=== PATIENT | female | born 1955 | race Caucasian/White ===

== ENCOUNTER 2020-07-22 20:45 | Observation (INO) | payer MEDICARE, MEDICAID, OTHER ==
[2020-07-22] MEDS ORDERED: Ondansetron 4 MG/2 ML SDV IVPUSH ONE (21:04)
[2020-07-22] MEDS ORDERED: Sodium Chloride 0.9% 2.5 ML Syringe FLUSH PRN (21:04)
[2020-07-22] MEDS ORDERED: Sodium Chloride 0.9% 1,000 ML IV ONE (21:04)
[2020-07-22] MEDS ORDERED: HYDROmorphone 1 MG/ML Syringe IVPUSH ONE ×2 (21:04→22:49)
[2020-07-22] MEDS ORDERED: Sodium Chloride 0.9% 10 ML Syringe FLUSH PRN (21:04)
--- NOTE | 2020-07-22 21:11 | EDM.PDOC ---
ED HPI GENERAL MEDICAL PROBLEM - General Chief Complaint: Abdominal Pain Stated Complaint: CONSTIPATION, ABDOMINAL PAIN Time Seen by Provider: 07/22/20 20:50 Source of Information: Reports: Patient - History of Present Illness INITIAL COMMENTS - FREE TEXT/NARRATIVE: HISTORY AND PHYSICAL: History of present illness: This is a 64-year-old female with a history significant for hypertension who presents ER today complaining of diffuse abdominal discomfort greatest in the lower abdomen with a sensation of constipation since Thursday. Patient denies any history of diabetes, liver, lung, kidney problems. Patient denies any tobacco, alcohol, drugs. Patient has no known drug allergies. Patient reports only abdominal surgery is a bilateral tubal ligation many years ago. Patient admits to fever of 100.9 earlier today. Patient denies any vomiting. Patient reports that she has been passing flatus and did have a small bowel movement today after going to the store and buying prunes. Patient denies any dysuria, frequency, urgency, hematuria. Patient reports in her bowel movement today that was a small amount of blood but she reports this is not unusual for her and that she has been diagnosed with hemorrhoids in the past and she feels like her hemorrhoids are flared with her constipation currently. She denies any chest pain, shortness of breath, URI symptoms, sore throat, coronavirus exposures. Patient denies any history of diverticulitis/diverticulosis. Review of systems: As per history of present illness and below otherwise all systems reviewed and negative. Past medical history: As per history of present illness and as reviewed below otherwise noncontributory. Surgical history: As per history of present illness and as reviewed below otherwise noncontributory. Social history: No reported history of drug or alcohol abuse. Family history: As per history of present illness and as reviewed below otherwise noncontributory. Physical exam: Constitutional: Patient is oriented to person, place, and time. Appears well- developed and well-nourished. No distress. HEENT: Moist mucous membranes Head: Normocephalic and atraumatic Eyes: Right eye exhibits no discharge. Left eye exhibits no discharge. No scleral icterus Neck: Normal range of motion. No tracheal deviation present. Cardiovascular: Normal rate and regular rhythm. Pulmonary: Effort normal, no respiratory distress. Abd: Soft, nondistended, no rebound/guarding, no psoas or obturator signs, no tenderness at Mcberney's point, no Harley's sign. Pt does not present with an exam that would be consistent with an acute surgical abdomen at this time, diffuse tenderness to palpation with greatest area of tenderness to palpation lower abdomen bilaterally. Musculoskeletal: Normal range of motion Neurologic: Alert and oriented to person, place and time. Skin: [place], warm and dry. Psychiatric: Normal mood and affect. Behavior is normal. Judgment and thought content normal. Nursing note and vital signs have been reviewed Diagnostics: CBC, CMP, lipase, CT scan of abdomen pelvis with IV contrast, urinalysis Therapeutics: Zofran 4 mg IV, Dilaudid 0.5 mg IV, NSS x1 L Dilaudid 1 mg IV Flagyl 500 mg IV Levaquin 750 mg IV Assessment and plan: Patient CT scan is consistent with diverticulitis with small perforation identified on the CT scan. Patient has been given Dilaudid 1 mg IV for continued pain. Patient was started on IV Levaquin and IV Flagyl to assist her with her diverticulitis. Assessment and plan 1. Acute diverticulitis of the sigmoid colon with adjacent extraluminal air is consistent with perforation. No pelvic abscess identified. 2. Heterogeneous exophytic mass arising from the lower pole of the right kidney containing nodular enhancement and scattered fat density foci. Primary differential consideration is for renal angiomyolipoma, however renal cell carcinoma is also a possibility. Urological consultation is recommended. Patient will be admitted, will consult with Dr. Lafleur for admission. Definitive disposition and diagnosis as appropriate pending reevaluation and review of above. Abdomen Pain Score (Numeric/FACES): 8 - Related Data Allergies Allergy/AdvReac Type Severity Reaction Status Date / Time Latex, Natural Rubber Allergy Swelling Verified 07/23/20 01:56 Home Meds: Home Meds Losartan Potassium 25 mg PO DAILY 07/22/20 [History] Acetaminophen/oxyCODONE [Percocet 325-5 MG] 1 tab PO Q6HR PRN 4 Days #16 tablet 07/24/20 [Rx] Ciprofloxacin [Ciprofloxacin HCl] 500 mg PO BID 12 Days #24 tablet 07/24/20 [Rx] metroNIDAZOLE 500 mg PO Q8H 12 Days #36 tablet 07/24/20 [Rx] Past Medical History HEENT History: Reports: None Cardiovascular History: Reports: Hypertension Respiratory History: Reports: None Gastrointestinal History: Reports: None Genitourinary History: Reports: None CONVEYOR FEEDER History: Reports: Musculoskeletal History: Reports: None Neurological History: Reports: None Psychiatric History: Reports: None Endocrine/Metabolic History: Reports: None Hematologic History: Reports: None Immunologic History: Reports: None Oncologic (Cancer) History: Reports: None Dermatologic History: Reports: None - Infectious Disease History Infectious Disease History: Reports: None - Past Surgical History Head Surgeries/Procedures: Reports: None Female Surgical History: Reports: Hysterectomy, Tubal Ligation Musculoskeletal Surgical History: Reports: Shoulder Surgery Social & Family History - Family History Family Medical History: Noncontributory - Tobacco Use Smoking Status *Q: Former Smoker Used Tobacco, but Quit: No - Caffeine Use Caffeine Use: Reports: Coffee - Recreational Drug Use Recreational Drug Use: No ED ROS GENERAL - Review of Systems Review Of Systems: Comprehensive ROS is negative, except as noted in HPI. ED EXAM, GENERAL - Physical Exam Exam: See Below Course - Vital Signs Last Recorded V/S: Last Vital Signs Temp 97.1 F 07/24/20 16:00 Pulse 67 07/24/20 16:00 Resp 20 07/24/20 16:00 BP 148/73 H 07/24/20 16:00 Pulse Ox 98 07/24/20 16:00 - Orders/Labs/Meds Labs: Laboratory Tests 07/22/20 07/22/20 07/22/20 Range/Units 21:00 21:00 21:10 WBC 13.51 H (4.0-11.0) K/uL RBC 4.77 (4.30-5.90) M/uL Hgb 14.9 (12.0-16.0) g/dL Hct 44.1 (36.0-46.0) % MCV 92.5 (80.0-98.0) fL MCH 31.2 (27.0-32.0) pg MCHC 33.8 (31.0-37.0) g/dL RDW Std Deviation 43.8 (28.0-62.0) fl RDW Coeff of Tushar 13 (11.0-15.0) % Plt Count 239 (150-400) K/uL MPV 9.20 (7.40-12.00) fL Neut % (Auto) 86.7 H (48.0-80.0) % Lymph % (Auto) 5.8 L (16.0-40.0) % Amador % (Auto) 7.1 (0.0-15.0) % Eos % (Auto) 0.3 (0.0-7.0) % Baso % (Auto) 0.1 (0.0-1.5) % Neut # (Auto) 11.7 H (1.4-5.7) K/uL Lymph # (Auto) 0.8 (0.6-2.4) K/uL Amador # (Auto) 1.0 H (0.0-0.8) K/uL Eos # (Auto) 0.0 (0.0-0.7) K/uL Baso # (Auto) 0.0 (0.0-0.1) K/uL Nucleated RBC % 0.0 /100WBC Nucleated RBCs # 0 K/uL Sodium 133 L (136-145) mmol/L Potassium 4.1 (3.5-5.1) mmol/L Chloride 99 (98-107) mmol/L Carbon Dioxide 20.9 L (21.0-32.0) mmol/L BUN 9 (7.0-18.0) mg/dL Creatinine 1.1 H (0.6-1.0) mg/dL Est Cr Clr Drug Dosing 47.10 mL/min Estimated GFR (MDRD) 49.7 ml/min Glucose 138 H (74-106) mg/dL Calcium 9.7 (8.5-10.1) mg/dL Total Bilirubin 0.7 (0.2-1.0) mg/dL AST 118 H (15-37) IU/L ALT 191 H (14-63) IU/L Alkaline Phosphatase 273 H (46-116) U/L Total Protein 7.9 (6.4-8.2) g/dL Albumin 3.7 (3.4-5.0) g/dL Globulin 4.2 H (2.6-4.0) g/dL Albumin/Globulin Ratio 0.9 (0.9-1.6) Lipase 109 (73-393) U/L Urine Color YELLOW Urine Appearance CLEAR Urine pH 5.0 (5.0-8.0) Ur Specific [place] 1.020 (1.001-1.035) Urine Protein NEGATIVE (NEGATIVE) mg/dL Urine Glucose (UA) NEGATIVE (NEGATIVE) mg/dL Urine Ketones >=80 (NEGATIVE) mg/dL Urine Occult Blood NEGATIVE (NEGATIVE) Urine Nitrite NEGATIVE (NEGATIVE) Urine Bilirubin NEGATIVE (NEGATIVE) Urine Urobilinogen 1.0 (<2.0) EU/dL Ur Leukocyte Esterase NEGATIVE (NEGATIVE) SARS Virus RNA (PCR) (NEGATIVE) 07/22/20 Range/Units 23:45 WBC (4.0-11.0) K/uL RBC (4.30-5.90) M/uL Hgb (12.0-16.0) g/dL Hct (36.0-46.0) % MCV (80.0-98.0) fL MCH (27.0-32.0) pg MCHC (31.0-37.0) g/dL RDW Std Deviation (28.0-62.0) fl RDW Coeff of Tushar (11.0-15.0) % Plt Count (150-400) K/uL MPV (7.40-12.00) fL Neut % (Auto) (48.0-80.0) % Lymph % (Auto) (16.0-40.0) % Amador % (Auto) (0.0-15.0) % Eos % (Auto) (0.0-7.0) % Baso % (Auto) (0.0-1.5) % Neut # (Auto) (1.4-5.7) K/uL Lymph # (Auto) (0.6-2.4) K/uL Amador # (Auto) (0.0-0.8) K/uL Eos # (Auto) (0.0-0.7) K/uL Baso # (Auto) (0.0-0.1) K/uL Nucleated RBC % /100WBC Nucleated RBCs # K/uL Sodium (136-145) mmol/L Potassium (3.5-5.1) mmol/L Chloride (98-107) mmol/L Carbon Dioxide (21.0-32.0) mmol/L BUN (7.0-18.0) mg/dL Creatinine (0.6-1.0) mg/dL Est Cr Clr Drug Dosing mL/min Estimated GFR (MDRD) ml/min Glucose (74-106) mg/dL Calcium (8.5-10.1) mg/dL Total Bilirubin (0.2-1.0) mg/dL AST (15-37) IU/L ALT (14-63) IU/L Alkaline Phosphatase (46-116) U/L Total Protein (6.4-8.2) g/dL Albumin (3.4-5.0) g/dL Globulin (2.6-4.0) g/dL Albumin/Globulin Ratio (0.9-1.6) Lipase (73-393) U/L Urine Color Urine Appearance Urine pH (5.0-8.0) Ur Specific [place] (1.001-1.035) Urine Protein (NEGATIVE) mg/dL Urine Glucose (UA) (NEGATIVE) mg/dL Urine Ketones (NEGATIVE) mg/dL Urine Occult Blood (NEGATIVE) Urine Nitrite (NEGATIVE) Urine Bilirubin (NEGATIVE) Urine Urobilinogen (<2.0) EU/dL Ur Leukocyte Esterase (NEGATIVE) SARS Virus RNA (PCR) NEGATIVE (NEGATIVE) Meds: Medications Discontinued Medications Generic Name Dose Route Start Last Admin Trade Name [facility] PRN Reason Stop Dose Admin Ciprofloxacin 500 mg 07/24/20 15:15 07/24/20 16:19 Ciprofloxacin Hcl PO 500 mg BID HERNESTO Administration Dextrose/Water 25 ml 07/24/20 00:25 07/24/20 00:50 Dextrose 50% In Water IVPUSH 07/24/20 00:26 25 ml ONETIME ONE Administration Diphenhydramine HCl 25 mg 07/23/20 17:54 07/23/20 21:17 Benadryl PO 25 mg BEDTIME PRN Administration Sleep Hydromorphone HCl 0.5 mg 07/22/20 21:04 07/22/20 21:23 Dilaudid IVPUSH 07/22/20 21:05 0.5 mg ONETIME ONE Administration Hydromorphone HCl 1 mg 07/22/20 22:49 07/22/20 23:06 Dilaudid IVPUSH 07/22/20 22:50 1 mg ONETIME ONE Administration Hydromorphone HCl 0.5 mg 07/23/20 09:27 07/24/20 07:18 Dilaudid IVPUSH 0.5 mg Q4H PRN Administration Pain Sodium Chloride 1,000 mls @ 999 mls/hr 07/22/20 21:04 07/22/20 21:19 Normal Saline IV 07/22/20 22:04 999 mls/hr .Bolus ONE Administration Levofloxacin/Dextrose 750 mg/ 150 mls @ 100 mls/hr 07/22/20 23:15 07/23/20 00:52 Premix IV 07/23/20 00:44 100 mls/hr ONETIME ONE Administration Metronidazole 500 mg/ Premix 100 mls @ 100 mls/hr 07/22/20 23:15 07/22/20 23:31 IV 07/23/20 00:14 100 mls/hr ONETIME ONE Administration Metronidazole 500 mg/ Premix 100 mls @ 100 mls/hr 07/22/20 23:29 07/22/20 23:31 IV 07/23/20 00:28 Not Given ONETIME ONE Lactated Ringer's 1,000 mls @ 125 mls/hr 07/23/20 00:30 07/23/20 22:28 Ringers, Lactated IV 125 mls/hr ASDIRECTED HERNESTO Administration Pantoprazole Sodium 40 mg/ 10 mls @ 300 mls/hr 07/23/20 09:00 07/24/20 10:22 Sodium Chloride IV 300 mls/hr DAILY HERNESTO Administration Piperacillin Sod/Tazobactam 50 mls @ 100 mls/hr 07/23/20 03:00 07/24/20 10:21 Sod 3.375 gm/ Sodium Chloride IV 100 mls/hr Q6H HERNESTO Administration Magnesium Sulfate 2 gm/ Premix 50 mls @ 50 mls/hr 07/23/20 19:04 07/23/20 19:40 IV 07/23/20 20:03 50 mls/hr ONETIME ONE Administration Dextrose/Lactated Ringer's 1,000 mls @ 125 mls/hr 07/24/20 00:30 07/24/20 00:55 Dextrose 5%-Lactated Ringers IV 125 mls/hr ASDIRECTED HERNESTO Administration Iopamidol 75 ml 07/22/20 22:13 07/22/20 22:15 Isovue-370 (76%) IVPUSH 07/22/20 22:14 75 ml ONETIME STA Administration Losartan Potassium 25 mg 07/23/20 14:00 07/24/20 10:22 Cozaar PO 25 mg DAILY HERNESTO Administration Metronidazole 500 mg 07/24/20 15:15 07/24/20 16:19 Metronidazole PO 500 mg Q8H HERNESTO Administration Morphine Sulfate 2 mg 07/23/20 00:26 07/23/20 01:42 Morphine IVPUSH 2 mg Q4H PRN Administration Pain Ondansetron HCl 4 mg 07/22/20 21:04 07/22/20 21:21 Zofran IVPUSH 07/22/20 21:05 4 mg ONETIME ONE Administration Ondansetron HCl 4 mg 07/23/20 00:26 07/23/20 08:51 Zofran IVPUSH 4 mg Q4H PRN Administration Nausea/Vomiting Oxycodone/Acetaminophen 1 tab 07/24/20 15:14 Percocet 325-5 Mg PO Q4H PRN Pain Sodium Chloride 10 ml 07/22/20 21:04 07/22/20 21:26 Saline Flush FLUSH 10 ml ASDIRECTED PRN Administration Keep Vein Open Sodium Chloride 2.5 ml 07/22/20 21:04 07/22/20 21:26 Saline Flush FLUSH 2.5 ml ASDIRECTED PRN Administration Keep Vein Open Departure - Departure Time of Disposition: 22:44 Disposition: Refer to Observation Condition: Good Clinical Impression: Diverticulitis - Discharge Information Sepsis Event Note (ED) - Evaluation Sepsis Screening Result: No Definite Risk
[2020-07-22 21:25] LABS: CARBON DIOXIDE,CO2 20.9 mmol/L (21.0-32.0); POTASSIUM,K 4.1 mmol/L (3.5-5.1)
[2020-07-22] MEDS ORDERED: Iopamidol 755 Mg/ML 100 ML Bottle IVPUSH STA (22:13)
[2020-07-22] MEDS ORDERED: Levofloxacin/Dextrose 5%-Water 750 MG in Premix Bag 1 BAG IV ONE (23:15)
[2020-07-22] MEDS ORDERED: metroNIDAZOLE/Normal Saline 500 MG in Premix Bag 1 BAG IV ONE ×2 (23:15→23:29)
--- NOTE | 2020-07-22 23:18 | CT ---
Indication: Lower abdominal pain Technique: Contrast enhanced axial CT imaging through the abdomen and pelvis. 75 mL Isovue 370 contrast agent was administered intravenously. Sagittal and coronal reconstructions are provided. Comparison: None Findings: There is no significant abnormality of the liver, gallbladder, spleen, pancreas, and adrenal glands. The portal vein, hepatic veins, and IVC are patent. There is normal caliber of the abdominal aorta. There is no abdominal lymphadenopathy. There is in irregular mass adjacent to the lower pole the right kidney, likely arising exophytically from the kidney. The mass measures 6.1 x 3.8 cm in the axial plane and 7.0 cm craniocaudally. Multiple small hypoattenuating foci within the right consistent with fat. Irregular nodular enhancement is also demonstrated throughout the mass. Prominent vessels are noted along the anterior margin of the mass. There is also a small exophytic right renal cortical cyst. A small parapelvic renal cyst is noted on the left. The left kidney is otherwise unremarkable. There is diverticulosis of the sigmoid colon with associated wall thickening and adjacent inflammatory stranding, consistent with diverticulitis. A focus of extraluminal air is noted along the superior margin of the inflamed segment, consistent with perforation. There is no pericolonic fluid collection to indicate abscess formation. There is no free intraperitoneal air. Remainder of the colon is unremarkable. The appendix is noninflamed. No abnormality is demonstrated in the stomach and small bowel. There are mild degenerative changes of the lower lumbar spine. The included lung bases are clear. Impression: 1. Acute diverticulitis of the sigmoid colon. Adjacent extraluminal air is consistent with perforation. No pelvic abscess. 2. Heterogeneous exophytic mass arising from the lower pole of the right kidney containing nodular enhancement and scattered fat density foci. Primary differential consideration is for renal angiomyolipoma. However, renal cell carcinoma is also a possibility. Urologic consultation is recommended. 3. Findings called to Dr. Leigh at 11:15 p.m. Please note that all CT scans at this facility use dose modulation, iterative reconstruction, and/or weight-based dosing when appropriate to reduce radiation dose to as low as reasonably achievable. Dictated by Venu Prabhakar MD @ Jul 22 2020 11:03PM Signed by Dr. Venu Prabhakar @ Jul 22 2020 11:17PM
[2020-07-23] MEDS ORDERED: Morphine 2 MG/ML SYRINGE IVPUSH PRN (00:26)
--- NOTE | 2020-07-23 00:46 | PCM.SN.2 ---
- Free Text/Narrative Note: pt seen, chart reviewed; diverticulitis with microperforation, no intraperitoneal free air; proceed w iv abx, conservative managment; pt has been seeing senior sas programmer re palpitation, would consult Dr. Justice when office open; long discussion w pt w treatment plan, npo, iv abx, and at least 3 wks abx, fu w colonoscopy 2 mos from; if not responding, would need Muñoz procedure; pt may consider transfer if the need for surgey arise, pt has not made decision re transfer, if the need arise. will follow pt w you; [id number]
[2020-07-23] MEDS: Ondansetron 4 MG/2 ML SDV IVPUSH PRN ×2 (01:40→08:51)
[2020-07-23] MEDS: Lactated Ringers 1,000 ML IV SCH ×3 (02:16→22:28)
[2020-07-23] MEDS: Piperacillin/Tazobactam 3.375 GM in Sodium Chloride 0.9% 50 ML IV SCH ×4 (02:55→21:20)
[2020-07-23 06:32] LABS: BLOOD UREA NITROGEN,BUN 7 mg/dL (7.0-18.0); CARBON DIOXIDE,CO2 22.8 mmol/L (21.0-32.0); CHLORIDE,CL 102 mmol/L (98-107); GLUCOSE RANDOM 118 mg/dL (74-106); POTASSIUM,K 3.9 mmol/L (3.5-5.1); SODIUM,NA 136 mmol/L (136-145)
[2020-07-23] MEDS: Pantoprazole 40 MG in Sodium Chloride 0.9% 10 ML IV SCH (08:51)
[2020-07-23] MEDS: HYDROmorphone 2 MG/ML Syringe IVPUSH PRN ×2 (09:54→14:39)
--- NOTE | 2020-07-23 11:07 | CONS ---
DATE OF CONSULTATION: 07/23/2020 DATE OF : 1955 PRIMARY CARE PHYSICIAN: Maira Escobedo REFERRING PHYSICIAN: Dr. Moody Leigh REASON FOR CONSULTATION: Diverticulitis. HISTORY OF PRESENT ILLNESS: The patient is a 64-year-old lady, who complained over 2-1/2 day history of gradual onset of severe left lower quadrant pain and also increased constipation. The patient remarked the pain has increased tremendously today, and when the emergency room did a CAT scan, the CAT scan showed sigmoid diverticulitis with some extraluminal air, suggesting possible perforation. There is no intraperitoneal free air, which is consistent with microperforation. Surgery was then consulted. The patient denied prior past episode. PAST MEDICAL HISTORY: Denies diabetic, stroke, or [place]. The patient has hypertension. The patient is also seeing Dr. Ferris for frequent palpitations. PAST SURGICAL HISTORY: Bladder repair, normal vaginal delivery x2. ALLERGIES: Please refer to nursing for details. MEDICATION: Please refer to nursing for details. FAMILY HISTORY: No family history of colon cancer. SOCIAL HISTORY: The patient is sometimes smoking, and a glass of wine everyday. PHYSICAL EXAMINATION: GENERAL: A very pleasant lady, smiling to the doctor, very polite, resting comfortably on stretcher in the emergency room. HEENT: Normocephalic and atraumatic. Sclerae are anicteric. LUNGS: Clear to auscultation. HEART: Regular rate and rhythm. ABDOMEN: Soft and nondistended. Not pulsating tender midline abdominal structure. Exquisite tenderness on the left lower quadrant and suprapubic area. On examination is not tender. LABORATORY DATA AND IMAGING: Upon consultation white count is 13, H and H 15 and 44, and platelet is 239. Sodium 133, potassium 4.1, BUN is 9, creatinine is 1.1, glucose is 138, total bilirubin is 0.7, AST and ALT mildly elevated to 120 and 190, and alkaline phosphatase is 273. Lipase is normal at 109. UA: No signs or symptoms of infection. CAT scan report: 1. Acute diverticulitis consistent with perforation. No pelvic abscess. No intraperitoneal free air. 2. Also has some kidney exophytic mass, and recommend Urology consultation. IMPRESSION: Microperforated diverticulitis. Been going on since the last 2 days with elevated white count, and pain is manageable with pain medication. Microperforation. No abscess. Should be responding to conservative management, with IV Levaquin and IV Flagyl. N.p.o. Long discussion with the patient regarding management. If the patient responds to conservative management, dodge surgery, the patient should have followup colonoscopy at least 2 months from now or after pain has completely resolved. The patient should have at least 3 weeks of antibiotic IV plus p.o., and have a followup colonoscopy. In the case the patient does not respond to IV antibiotic, the patient will need emergency surgery, and the patient will get Rajwinder procedure with colostomy, and have been discussed with the patient. With the patient's palpitation situation not clear even after reading to Dr. Ferris, the pound keeper, note, we will recheck with Dr. Ferris when office opens on Thursday. The patient is also not quite clear whether she would have emergency surgery over here. So if the need arise, we may have to talk the patient and see what is her desire. For the time being, continue IV antibiotic, n.p.o., serial abdominal exam, and follow with blood work. I will follow the patient with you. As always, thank you for the kind referral. LIZZETH MARLOW /[id number]
--- NOTE | 2020-07-23 11:59 | PCM.HP.2 ---
<Bunny Becker - Last Filed: 07/23/20 12:34> H&P History of Present Illness - General Date of Service: 07/23/20 Admit Problem/Dx: Admission Diagnosis/Problem Admission Diagnosis/Problem Diverticulitis Source of Information: Patient History Limitations: Reports: No Limitations - History of Present Illness Initial Comments - Free Text/Narative: 64-year-old female admitted for diverticulitis. Patient has no GI PMH and states only hypertension. Patient states social alcohol usage but no illicit drug use. Patient does take Tylenol regularly. Patient states that her abdominal pain began thursday and got increasingly worse thought the weekend. Thursday afternoon it become very uncomfortable at which time patient presented to the ED. She states that she has never had abdominal pain like this before and thought that her pain was cause by constipation. CT Abdo was obtained which showed diverticulitis of the sigmoid colon. Patient was seen by surgery who recommended non-surgical interventions (IV fluids, NPO, IV antibiotics, pain control). Patient does have elevated transaminases (AST 118, ALT 191) and elevated alk phos (273). US Liver/Gallbladder ordered and results pending. Abdomen Pain Score (Numeric/FACES): 4 - Related Data Allergies/Adverse Reactions: Allergies Allergy/AdvReac Type Severity Reaction Status Date / Time Latex, Natural Rubber Allergy Swelling Verified 07/23/20 01:56 Home Medications: Home Meds Losartan Potassium 25 mg PO DAILY 07/22/20 [History] Acetaminophen/oxyCODONE [Percocet 325-5 MG] 1 tab PO Q6HR PRN 4 Days #16 tablet 07/24/20 [Rx] Ciprofloxacin [Ciprofloxacin HCl] 500 mg PO BID 12 Days #24 tablet 07/24/20 [Rx] metroNIDAZOLE 500 mg PO Q8H 12 Days #36 tablet 07/24/20 [Rx] Past Medical History HEENT History: Reports: None Cardiovascular History: Reports: Hypertension Respiratory History: Reports: None Gastrointestinal History: Reports: None Genitourinary History: Reports: None 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: Musculoskeletal History: Reports: None Neurological History: Reports: None Psychiatric History: Reports: None Endocrine/Metabolic History: Reports: None Hematologic History: Reports: None Immunologic History: Reports: None Oncologic (Cancer) History: Reports: None Dermatologic History: Reports: None - Infectious Disease History Infectious Disease History: Reports: None - Past Surgical History Head Surgeries/Procedures: Reports: None Female Surgical History: Reports: Hysterectomy, Tubal Ligation Musculoskeletal Surgical History: Reports: Shoulder Surgery Social & Family History - Family History Family Medical History: Noncontributory - Tobacco Use Smoking Status *Q: Former Smoker Used Tobacco, but Quit: Yes Month/Year Tobacco Last Used: 1994 - Caffeine Use Caffeine Use: Reports: Coffee - Recreational Drug Use Recreational Drug Use: No H&P Review of Systems - Review of Systems: Review Of Systems: See Below General: Reports: Fever. Denies: Chills, Weakness, Night Sweats, Weight Loss HEENT: Reports: Headaches. Denies: Visual Changes Pulmonary: Denies: Shortness of Breath, Wheezing, Cough Cardiovascular: Denies: Chest Pain, Palpitations, Dyspnea on Exertion Gastrointestinal: Reports: Abdominal Pain, Constipation. Denies: Bloody Stool, Diarrhea, Difficulty Swallowing, Distension Genitourinary: Reports: Dysuria Musculoskeletal: Reports: Back Pain Psychiatric: Denies: Confusion, Depression Neurological: Denies: Dizziness, Headache, Numbness, Trouble Speaking, Difficulty Walking Exam - Exam Exam: See Below - Vital Signs Vital Signs: Last Vital Signs Temp 98.1 F 07/23/20 11:55 Pulse 61 07/23/20 11:55 Resp 17 07/23/20 11:55 BP 118/66 07/23/20 11:55 Pulse Ox 97 07/23/20 11:55 Weight: 87.135 kg - Exam Quality Assessment: Central Line/PICC General: Alert, Oriented HEENT: EOMI Neck: Trachea Midline Lungs: Clear to Auscultation, Normal Respiratory Effort. No: Crackles, Wheezing Cardiovascular: Regular Rate, Regular Rhythm, Normal S1 GI/Abdominal Exam: Normal Bowel Sounds, Soft, Rebound, Tender. No: Guarding Extremities: Normal Inspection, Non-Tender, No Pedal Edema Skin: Warm, Dry Neurological: Normal Speech Neuro Extensive - Mental Status: Alert, Oriented x3, Normal Mood/Affect - Patient Data Lab Results Last 24 hrs: Laboratory Results - last 24 hr 07/22/20 07/22/20 07/22/20 Range/Units 21:00 21:00 21:10 WBC 13.51 H (4.0-11.0) K/uL RBC 4.77 (4.30-5.90) M/uL Hgb 14.9 (12.0-16.0) g/dL Hct 44.1 (36.0-46.0) % MCV 92.5 (80.0-98.0) fL MCH 31.2 (27.0-32.0) pg MCHC 33.8 (31.0-37.0) g/dL RDW Std Deviation 43.8 (28.0-62.0) fl RDW Coeff of Tushar 13 (11.0-15.0) % Plt Count 239 (150-400) K/uL MPV 9.20 (7.40-12.00) fL Neut % (Auto) 86.7 H (48.0-80.0) % Lymph % (Auto) 5.8 L (16.0-40.0) % [place] % (Auto) 7.1 (0.0-15.0) % Eos % (Auto) 0.3 (0.0-7.0) % Baso % (Auto) 0.1 (0.0-1.5) % Neut # (Auto) 11.7 H (1.4-5.7) K/uL Lymph # (Auto) 0.8 (0.6-2.4) K/uL [place] # (Auto) 1.0 H (0.0-0.8) K/uL Eos # (Auto) 0.0 (0.0-0.7) K/uL Baso # (Auto) 0.0 (0.0-0.1) K/uL Nucleated RBC % 0.0 /100WBC Nucleated RBCs # 0 K/uL Sodium 133 L (136-145) mmol/L Potassium 4.1 (3.5-5.1) mmol/L Chloride 99 (98-107) mmol/L Carbon Dioxide 20.9 L (21.0-32.0) mmol/L BUN 9 (7.0-18.0) mg/dL Creatinine 1.1 H (0.6-1.0) mg/dL Est Cr Clr Drug Dosing 47.10 mL/min Estimated GFR (MDRD) 49.7 ml/min Glucose 138 H (74-106) mg/dL POC Glucose (60-110) mg/dL Calcium 9.7 (8.5-10.1) mg/dL Phosphorus (2.6-4.7) mg/dL Magnesium (1.8-2.4) mg/dL Total Bilirubin 0.7 (0.2-1.0) mg/dL AST 118 H (15-37) IU/L ALT 191 H (14-63) IU/L Alkaline Phosphatase 273 H (46-116) U/L Total Protein 7.9 (6.4-8.2) g/dL Albumin 3.7 (3.4-5.0) g/dL Globulin 4.2 H (2.6-4.0) g/dL Albumin/Globulin Ratio 0.9 (0.9-1.6) Lipase 109 (73-393) U/L Urine Color YELLOW Urine Appearance CLEAR Urine pH 5.0 (5.0-8.0) Ur Specific [place] 1.020 (1.001-1.035) Urine Protein NEGATIVE (NEGATIVE) mg/dL Urine Glucose (UA) NEGATIVE (NEGATIVE) mg/dL Urine Ketones >=80 (NEGATIVE) mg/dL Urine Occult Blood NEGATIVE (NEGATIVE) Urine Nitrite NEGATIVE (NEGATIVE) Urine Bilirubin NEGATIVE (NEGATIVE) Urine Urobilinogen 1.0 (<2.0) EU/dL Ur Leukocyte Esterase NEGATIVE (NEGATIVE) SARS Virus RNA (PCR) (NEGATIVE) 07/22/20 07/23/20 07/23/20 Range/Units 23:45 05:35 05:35 WBC 10.62 (4.0-11.0) K/uL RBC 4.12 L (4.30-5.90) M/uL Hgb 12.7 (12.0-16.0) g/dL Hct 38.8 (36.0-46.0) % MCV 94.2 (80.0-98.0) fL MCH 30.8 (27.0-32.0) pg MCHC 32.7 (31.0-37.0) g/dL RDW Std Deviation 46.0 (28.0-62.0) fl RDW Coeff of Tushar 13 (11.0-15.0) % Plt Count 232 (150-400) K/uL MPV 9.40 (7.40-12.00) fL Neut % (Auto) 84.6 H (48.0-80.0) % Lymph % (Auto) 7.2 L (16.0-40.0) % [place] % (Auto) 7.7 (0.0-15.0) % Eos % (Auto) 0.4 (0.0-7.0) % Baso % (Auto) 0.1 (0.0-1.5) % Neut # (Auto) 9.0 H (1.4-5.7) K/uL Lymph # (Auto) 0.8 (0.6-2.4) K/uL [place] # (Auto) 0.8 (0.0-0.8) K/uL Eos # (Auto) 0.0 (0.0-0.7) K/uL Baso # (Auto) 0.0 (0.0-0.1) K/uL Nucleated RBC % 0.0 /100WBC Nucleated RBCs # 0 K/uL Sodium 136 (136-145) mmol/L Potassium 3.9 (3.5-5.1) mmol/L Chloride 102 (98-107) mmol/L Carbon Dioxide 22.8 (21.0-32.0) mmol/L BUN 7 (7.0-18.0) mg/dL Creatinine 0.8 (0.6-1.0) mg/dL Est Cr Clr Drug Dosing 64.76 mL/min Estimated GFR (MDRD) > 60.0 ml/min Glucose 118 H (74-106) mg/dL POC Glucose (60-110) mg/dL Calcium 8.6 (8.5-10.1) mg/dL Phosphorus 2.6 (2.6-4.7) mg/dL Magnesium 1.6 L (1.8-2.4) mg/dL Total Bilirubin (0.2-1.0) mg/dL AST (15-37) IU/L ALT (14-63) IU/L Alkaline Phosphatase (46-116) U/L Total Protein (6.4-8.2) g/dL Albumin (3.4-5.0) g/dL Globulin (2.6-4.0) g/dL Albumin/Globulin Ratio (0.9-1.6) Lipase (73-393) U/L Urine Color Urine Appearance Urine pH (5.0-8.0) Ur Specific [place] (1.001-1.035) Urine Protein (NEGATIVE) mg/dL Urine Glucose (UA) (NEGATIVE) mg/dL Urine Ketones (NEGATIVE) mg/dL Urine Occult Blood (NEGATIVE) Urine Nitrite (NEGATIVE) Urine Bilirubin (NEGATIVE) Urine Urobilinogen (<2.0) EU/dL Ur Leukocyte Esterase (NEGATIVE) SARS Virus RNA (PCR) NEGATIVE (NEGATIVE) 07/23/20 07/23/20 Range/Units 07:39 11:50 WBC (4.0-11.0) K/uL RBC (4.30-5.90) M/uL Hgb (12.0-16.0) g/dL Hct (36.0-46.0) % MCV (80.0-98.0) fL MCH (27.0-32.0) pg MCHC (31.0-37.0) g/dL RDW Std Deviation (28.0-62.0) fl RDW Coeff of Tushar (11.0-15.0) % Plt Count (150-400) K/uL MPV (7.40-12.00) fL Neut % (Auto) (48.0-80.0) % Lymph % (Auto) (16.0-40.0) % [place] % (Auto) (0.0-15.0) % Eos % (Auto) (0.0-7.0) % Baso % (Auto) (0.0-1.5) % Neut # (Auto) (1.4-5.7) K/uL Lymph # (Auto) (0.6-2.4) K/uL [place] # (Auto) (0.0-0.8) K/uL Eos # (Auto) (0.0-0.7) K/uL Baso # (Auto) (0.0-0.1) K/uL Nucleated RBC % /100WBC Nucleated RBCs # K/uL Sodium (136-145) mmol/L Potassium (3.5-5.1) mmol/L Chloride (98-107) mmol/L Carbon Dioxide (21.0-32.0) mmol/L BUN (7.0-18.0) mg/dL Creatinine (0.6-1.0) mg/dL Est Cr Clr Drug Dosing mL/min Estimated GFR (MDRD) ml/min Glucose (74-106) mg/dL POC Glucose 119 H 92 (60-110) mg/dL Calcium (8.5-10.1) mg/dL Phosphorus (2.6-4.7) mg/dL Magnesium (1.8-2.4) mg/dL Total Bilirubin (0.2-1.0) mg/dL AST (15-37) IU/L ALT (14-63) IU/L Alkaline Phosphatase (46-116) U/L Total Protein (6.4-8.2) g/dL Albumin (3.4-5.0) g/dL Globulin (2.6-4.0) g/dL Albumin/Globulin Ratio (0.9-1.6) Lipase (73-393) U/L Urine Color Urine Appearance Urine pH (5.0-8.0) Ur Specific [place] (1.001-1.035) Urine Protein (NEGATIVE) mg/dL Urine Glucose (UA) (NEGATIVE) mg/dL Urine Ketones (NEGATIVE) mg/dL Urine Occult Blood (NEGATIVE) Urine Nitrite (NEGATIVE) Urine Bilirubin (NEGATIVE) Urine Urobilinogen (<2.0) EU/dL Ur Leukocyte Esterase (NEGATIVE) SARS Virus RNA (PCR) (NEGATIVE) Result Diagrams: 07/23/20 05:35 07/23/20 05:35 Sepsis Event Note - Evaluation Sepsis Screening Result: No Definite Risk - Focused Exam Vital Signs: Vital Signs Temp Pulse Resp BP Pulse Ox 07/23/20 11:55 98.1 F 61 17 118/66 97 07/23/20 07:30 98.3 F 77 17 141/76 H 97 07/23/20 03:10 98 F 64 17 118/62 94 L 07/23/20 01:53 97.8 F 84 18 118/71 94 L 07/23/20 00:30 85 17 119/69 94 L Problem List Initiated/Reviewed/Updated: Yes Orders Last 24hrs: Active Orders 24 hr Category Date Time Status Patient Status [ADT] Routine ADT 07/22/20 23:59 Active Antiembolic Devices [RC] PER UNIT ROUTINE Care 07/23/20 00:25 Active Blood Glucose Check, Bedside [RC] Q6H Care 07/23/20 07:00 Active Notify Provider Consults [RC] ASDIRECTED Care 07/23/20 10:32 Active Oxygen Therapy Adult [Oxygen Therapy] [RC] ASDIRECTED Care 07/23/20 00:23 Active Vital Signs [RC] Q4H Care 07/23/20 00:00 Active Consult to Physician [CONS] Routine Cons 07/23/20 10:31 Active NPO [Nothing Per Oral Diet] [DIET] Diet 07/23/20 Breakfast Active Abdomen Ltd [US] Routine Exams 07/23/20 10:38 Ordered CBC WITH AUTO DIFF [HEME] AM Lab 07/24/20 05:11 Ordered CMP [COMPREHENSIVE METABOLIC PN,CMP] [CHEM] AM Lab 07/24/20 05:11 Ordered HYDROmorphone [Dilaudid] Med 07/23/20 09:27 Active 0.5 mg IVPUSH Q4H PRN Lactated Ringers [Ringers, Lactated] 1,000 ml Med 07/23/20 00:30 Active IV ASDIRECTED Losartan [Cozaar] Med 07/24/20 09:00 Active 25 mg PO DAILY Ondansetron [Zofran] Med 07/23/20 00:26 Active 4 mg IVPUSH Q4H PRN Pantoprazole [ProTONIX IV] 40 mg Med 07/23/20 09:00 Active Sodium Chloride 0.9% [Normal Saline] 10 ml IV DAILY Piperacillin/Tazobactam [Piperacil-Tazobact] 3.375 gm Med 07/23/20 03:00 Active Sodium Chloride 0.9% [Normal Saline] 50 ml IV Q6H Sodium Chloride 0.9% [Saline Flush] Med 07/22/20 21:04 Active 10 ml FLUSH ASDIRECTED PRN Sodium Chloride 0.9% [Saline Flush] Med 07/22/20 21:04 Active 2.5 ml FLUSH ASDIRECTED PRN SCD [Sequential Compression Device] [OM.PC] Routine Oth 07/23/20 00:25 Ordered Saline Lock Insert [OM.PC] Stat Oth 07/22/20 21:04 Ordered Code Status [Resuscitation Status] Routine Resus Stat 07/23/20 11:09 Ordered Medication Orders Hydromorphone HCl (Dilaudid) 0.5 mg IVPUSH Q4H PRN PRN Reason: Pain Last Admin: 07/23/20 09:54 Dose: 0.5 mg Documented by: SEMICHR Lactated Ringer's (Ringers, Lactated) 1,000 mls @ 125 mls/hr IV ASDIRECTED HERNESTO Last Admin: 07/23/20 11:52 Dose: 125 mls/hr Documented by: Infusion: 07/23/20 10:16 Dose: 125 mls/hr Documented by: Admin: 07/23/20 02:16 Dose: 125 mls/hr Documented by: DANITA Pantoprazole Sodium 40 mg/ (Sodium Chloride) 10 mls @ 300 mls/hr IV DAILY [facility] Last Admin: 07/23/20 08:51 Dose: 300 mls/hr Documented by: GIGI Piperacillin Sod/Tazobactam (Sod 3.375 gm/ Sodium Chloride) 50 mls @ 100 mls/hr IV Q6H [facility] Last Admin: 07/23/20 08:51 Dose: 100 mls/hr Documented by: Infusion: 07/23/20 03:25 Dose: 100 mls/hr Documented by: Admin: 07/23/20 02:55 Dose: 100 mls/hr Documented by: DANITA Losartan Potassium (Cozaar) 25 mg PO DAILY [facility] Ondansetron HCl (Zofran) 4 mg IVPUSH Q4H PRN PRN Reason: Nausea/Vomiting Last Admin: 07/23/20 08:51 Dose: 4 mg Documented by: Admin: 07/23/20 01:40 Dose: 4 mg Documented by: DANITA Sodium Chloride (Saline Flush) 10 ml FLUSH ASDIRECTED PRN PRN Reason: Keep Vein Open Last Admin: 07/22/20 21:26 Dose: 10 ml Documented by: BETTYE Sodium Chloride (Saline Flush) 2.5 ml FLUSH ASDIRECTED PRN PRN Reason: Keep Vein Open Last Admin: 07/22/20 21:26 Dose: 2.5 ml Documented by: BETTYE Assessment/Plan: Diverticulitis: NPO, LR 125ml/hr, Zosyn Q6HR, Dilaudid 0.5mg Q4HR PRN (will adjust pain medication as needed), Zofran 4mg Q4hr PRN, IV PPI 40mg Daily. Surgery has seen the patient and has recommend non-surgical management (ABX for 3 weeks, follow up colonoscopy in 2 months, surgery only if patients symptoms do not improve) Transaminitis: AST 118, ALT 191, Alk Phos 273. Patient states frequent Tylenol ingestion at home for pain, will avoid Tylenol During hospital course. US Liver/Gallbladder ordered due to elevated Alk Phos. <Radha Nguyễn - Last Filed: 07/25/20 12:43> H&P History of Present Illness - General Admit Problem/Dx: Admission Diagnosis/Problem Admission Diagnosis/Problem Diverticulitis Admission Diagnosis/Problem Diverticulitis - History of Present Illness Initial Comments - Free Text/Narative: I performed a history and physical exam of the patient and discussed management with resident. I have reviewed the residents note and agree with documented findings and plan unless otherwise specified in my note. Exam - Vital Signs Vital Signs: Last Vital Signs Temp 36.2 C 07/24/20 16:00 Pulse 67 07/24/20 16:00 Resp 20 07/24/20 16:00 BP 148/73 H 07/24/20 16:00 Pulse Ox 98 07/24/20 16:00 - Patient Data Result Diagrams: 07/24/20 05:07 07/24/20 05:07
[2020-07-23] MEDS: Losartan 50 MG Tab PO SCH (13:52)
[2020-07-23] MEDS ORDERED: diphenhydrAMINE 25 MG Cap PO PRN (17:54)
--- NOTE | 2020-07-23 19:01 | PCM.SURGPN ---
- General Info Date of Service: 07/23/20 Functional Status: Reports: Pain Controlled Pain Score: 2 - Review of Systems General: Reports: No Symptoms Gastrointestinal: Reports: No Symptoms (no BM, felt rumbling, will have BM soon, pain much much better from 6 to 2 on pain scale) - Patient Data Vitals - Most Recent: Last Vital Signs Temp 97.8 F 07/23/20 15:20 Pulse 72 07/23/20 15:20 Resp 17 07/23/20 15:20 BP 132/63 07/23/20 15:20 Pulse Ox 95 07/23/20 15:20 Weight - Most Recent: 192 lb 1.6 oz I&O - Last 24 Hours: Intake & Output 07/23/20 07/23/20 07/23/20 06:59 14:59 22:59 Intake Total 340 1070 Output Total 300 820 Balance 40 250 Lab Results Last 24 Hrs: Laboratory Results - last 24 hr 07/22/20 07/22/20 07/22/20 Range/Units 21:00 21:00 21:10 WBC 13.51 H (4.0-11.0) K/uL RBC 4.77 (4.30-5.90) M/uL Hgb 14.9 (12.0-16.0) g/dL Hct 44.1 (36.0-46.0) % MCV 92.5 (80.0-98.0) fL MCH 31.2 (27.0-32.0) pg MCHC 33.8 (31.0-37.0) g/dL RDW Std Deviation 43.8 (28.0-62.0) fl RDW Coeff of Tushar 13 (11.0-15.0) % Plt Count 239 (150-400) K/uL MPV 9.20 (7.40-12.00) fL Neut % (Auto) 86.7 H (48.0-80.0) % Lymph % (Auto) 5.8 L (16.0-40.0) % Scurry % (Auto) 7.1 (0.0-15.0) % Eos % (Auto) 0.3 (0.0-7.0) % Baso % (Auto) 0.1 (0.0-1.5) % Neut # (Auto) 11.7 H (1.4-5.7) K/uL Lymph # (Auto) 0.8 (0.6-2.4) K/uL Scurry # (Auto) 1.0 H (0.0-0.8) K/uL Eos # (Auto) 0.0 (0.0-0.7) K/uL Baso # (Auto) 0.0 (0.0-0.1) K/uL Nucleated RBC % 0.0 /100WBC Nucleated RBCs # 0 K/uL Sodium 133 L (136-145) mmol/L Potassium 4.1 (3.5-5.1) mmol/L Chloride 99 (98-107) mmol/L Carbon Dioxide 20.9 L (21.0-32.0) mmol/L BUN 9 (7.0-18.0) mg/dL Creatinine 1.1 H (0.6-1.0) mg/dL Est Cr Clr Drug Dosing 47.10 mL/min Estimated GFR (MDRD) 49.7 ml/min Glucose 138 H (74-106) mg/dL POC Glucose (60-110) mg/dL Calcium 9.7 (8.5-10.1) mg/dL Phosphorus (2.6-4.7) mg/dL Magnesium (1.8-2.4) mg/dL Total Bilirubin 0.7 (0.2-1.0) mg/dL AST 118 H (15-37) IU/L ALT 191 H (14-63) IU/L Alkaline Phosphatase 273 H (46-116) U/L Total Protein 7.9 (6.4-8.2) g/dL Albumin 3.7 (3.4-5.0) g/dL Globulin 4.2 H (2.6-4.0) g/dL Albumin/Globulin Ratio 0.9 (0.9-1.6) Lipase 109 (73-393) U/L Urine Color YELLOW Urine Appearance CLEAR Urine pH 5.0 (5.0-8.0) Ur Specific [place] 1.020 (1.001-1.035) Urine Protein NEGATIVE (NEGATIVE) mg/dL Urine Glucose (UA) NEGATIVE (NEGATIVE) mg/dL Urine Ketones >=80 (NEGATIVE) mg/dL Urine Occult Blood NEGATIVE (NEGATIVE) Urine Nitrite NEGATIVE (NEGATIVE) Urine Bilirubin NEGATIVE (NEGATIVE) Urine Urobilinogen 1.0 (<2.0) EU/dL Ur Leukocyte Esterase NEGATIVE (NEGATIVE) SARS Virus RNA (PCR) (NEGATIVE) 07/22/20 07/23/20 07/23/20 Range/Units 23:45 05:35 05:35 WBC 10.62 (4.0-11.0) K/uL RBC 4.12 L (4.30-5.90) M/uL Hgb 12.7 (12.0-16.0) g/dL Hct 38.8 (36.0-46.0) % MCV 94.2 (80.0-98.0) fL MCH 30.8 (27.0-32.0) pg MCHC 32.7 (31.0-37.0) g/dL RDW Std Deviation 46.0 (28.0-62.0) fl RDW Coeff of Tushar 13 (11.0-15.0) % Plt Count 232 (150-400) K/uL MPV 9.40 (7.40-12.00) fL Neut % (Auto) 84.6 H (48.0-80.0) % Lymph % (Auto) 7.2 L (16.0-40.0) % Scurry % (Auto) 7.7 (0.0-15.0) % Eos % (Auto) 0.4 (0.0-7.0) % Baso % (Auto) 0.1 (0.0-1.5) % Neut # (Auto) 9.0 H (1.4-5.7) K/uL Lymph # (Auto) 0.8 (0.6-2.4) K/uL Scurry # (Auto) 0.8 (0.0-0.8) K/uL Eos # (Auto) 0.0 (0.0-0.7) K/uL Baso # (Auto) 0.0 (0.0-0.1) K/uL Nucleated RBC % 0.0 /100WBC Nucleated RBCs # 0 K/uL Sodium 136 (136-145) mmol/L Potassium 3.9 (3.5-5.1) mmol/L Chloride 102 (98-107) mmol/L Carbon Dioxide 22.8 (21.0-32.0) mmol/L BUN 7 (7.0-18.0) mg/dL Creatinine 0.8 (0.6-1.0) mg/dL Est Cr Clr Drug Dosing 64.76 mL/min Estimated GFR (MDRD) > 60.0 ml/min Glucose 118 H (74-106) mg/dL POC Glucose (60-110) mg/dL Calcium 8.6 (8.5-10.1) mg/dL Phosphorus 2.6 (2.6-4.7) mg/dL Magnesium 1.6 L (1.8-2.4) mg/dL Total Bilirubin (0.2-1.0) mg/dL AST (15-37) IU/L ALT (14-63) IU/L Alkaline Phosphatase (46-116) U/L Total Protein (6.4-8.2) g/dL Albumin (3.4-5.0) g/dL Globulin (2.6-4.0) g/dL Albumin/Globulin Ratio (0.9-1.6) Lipase (73-393) U/L Urine Color Urine Appearance Urine pH (5.0-8.0) Ur Specific [place] (1.001-1.035) Urine Protein (NEGATIVE) mg/dL Urine Glucose (UA) (NEGATIVE) mg/dL Urine Ketones (NEGATIVE) mg/dL Urine Occult Blood (NEGATIVE) Urine Nitrite (NEGATIVE) Urine Bilirubin (NEGATIVE) Urine Urobilinogen (<2.0) EU/dL Ur Leukocyte Esterase (NEGATIVE) SARS Virus RNA (PCR) NEGATIVE (NEGATIVE) 07/23/20 07/23/20 Range/Units 07:39 11:50 WBC (4.0-11.0) K/uL RBC (4.30-5.90) M/uL Hgb (12.0-16.0) g/dL Hct (36.0-46.0) % MCV (80.0-98.0) fL MCH (27.0-32.0) pg MCHC (31.0-37.0) g/dL RDW Std Deviation (28.0-62.0) fl RDW Coeff of Tushar (11.0-15.0) % Plt Count (150-400) K/uL MPV (7.40-12.00) fL Neut % (Auto) (48.0-80.0) % Lymph % (Auto) (16.0-40.0) % Scurry % (Auto) (0.0-15.0) % Eos % (Auto) (0.0-7.0) % Baso % (Auto) (0.0-1.5) % Neut # (Auto) (1.4-5.7) K/uL Lymph # (Auto) (0.6-2.4) K/uL Scurry # (Auto) (0.0-0.8) K/uL Eos # (Auto) (0.0-0.7) K/uL Baso # (Auto) (0.0-0.1) K/uL Nucleated RBC % /100WBC Nucleated RBCs # K/uL Sodium (136-145) mmol/L Potassium (3.5-5.1) mmol/L Chloride (98-107) mmol/L Carbon Dioxide (21.0-32.0) mmol/L BUN (7.0-18.0) mg/dL Creatinine (0.6-1.0) mg/dL Est Cr Clr Drug Dosing mL/min Estimated GFR (MDRD) ml/min Glucose (74-106) mg/dL POC Glucose 119 H 92 (60-110) mg/dL Calcium (8.5-10.1) mg/dL Phosphorus (2.6-4.7) mg/dL Magnesium (1.8-2.4) mg/dL Total Bilirubin (0.2-1.0) mg/dL AST (15-37) IU/L ALT (14-63) IU/L Alkaline Phosphatase (46-116) U/L Total Protein (6.4-8.2) g/dL Albumin (3.4-5.0) g/dL Globulin (2.6-4.0) g/dL Albumin/Globulin Ratio (0.9-1.6) Lipase (73-393) U/L Urine Color Urine Appearance Urine pH (5.0-8.0) Ur Specific [place] (1.001-1.035) Urine Protein (NEGATIVE) mg/dL Urine Glucose (UA) (NEGATIVE) mg/dL Urine Ketones (NEGATIVE) mg/dL Urine Occult Blood (NEGATIVE) Urine Nitrite (NEGATIVE) Urine Bilirubin (NEGATIVE) Urine Urobilinogen (<2.0) EU/dL Ur Leukocyte Esterase (NEGATIVE) SARS Virus RNA (PCR) (NEGATIVE) Med Orders - Current: Current Medications Diphenhydramine HCl (Benadryl) 25 mg PO BEDTIME PRN PRN Reason: Sleep Hydromorphone HCl (Dilaudid) 0.5 mg IVPUSH Q4H PRN PRN Reason: Pain Last Admin: 07/23/20 14:39 Dose: 0.5 mg Documented by: Lactated Ringer's (Ringers, Lactated) 1,000 mls @ 125 mls/hr IV ASDIRECTED [facility] Last Admin: 07/23/20 11:52 Dose: 125 mls/hr Documented by: Pantoprazole Sodium 40 mg/ (Sodium Chloride) 10 mls @ 300 mls/hr IV DAILY [facility] Last Admin: 07/23/20 08:51 Dose: 300 mls/hr Documented by: Piperacillin Sod/Tazobactam (Sod 3.375 gm/ Sodium Chloride) 50 mls @ 100 mls/hr IV Q6H [facility] Last Admin: 07/23/20 14:40 Dose: 100 mls/hr Documented by: Losartan Potassium (Cozaar) 25 mg PO DAILY [facility] Last Admin: 07/23/20 13:52 Dose: 25 mg Documented by: Ondansetron HCl (Zofran) 4 mg IVPUSH Q4H PRN PRN Reason: Nausea/Vomiting Last Admin: 07/23/20 08:51 Dose: 4 mg Documented by: Sodium Chloride (Saline Flush) 10 ml FLUSH ASDIRECTED PRN PRN Reason: Keep Vein Open Last Admin: 07/22/20 21:26 Dose: 10 ml Documented by: Sodium Chloride (Saline Flush) 2.5 ml FLUSH ASDIRECTED PRN PRN Reason: Keep Vein Open Last Admin: 07/22/20 21:26 Dose: 2.5 ml Documented by: Discontinued Medications Hydromorphone HCl (Dilaudid) 0.5 mg IVPUSH ONETIME ONE Stop: 07/22/20 21:05 Last Admin: 07/22/20 21:23 Dose: 0.5 mg Documented by: Hydromorphone HCl (Dilaudid) 1 mg IVPUSH ONETIME ONE Stop: 07/22/20 22:50 Last Admin: 07/22/20 23:06 Dose: 1 mg Documented by: Sodium Chloride (Normal Saline) 1,000 mls @ 999 mls/hr IV .Bolus ONE Stop: 07/22/20 22:04 Last Admin: 07/22/20 21:19 Dose: 999 mls/hr Documented by: Levofloxacin/Dextrose 750 mg/ (Premix) 150 mls @ 100 mls/hr IV ONETIME ONE Stop: 07/23/20 00:44 Last Admin: 07/23/20 00:52 Dose: 100 mls/hr Documented by: Metronidazole 500 mg/ Premix 100 mls @ 100 mls/hr IV ONETIME ONE Stop: 07/23/20 00:14 Last Admin: 07/22/20 23:31 Dose: 100 mls/hr Documented by: Metronidazole 500 mg/ Premix 100 mls @ 100 mls/hr IV ONETIME ONE Stop: 07/23/20 00:28 Last Admin: 07/22/20 23:31 Dose: Not Given Documented by: Iopamidol (Isovue-370 (76%)) 75 ml IVPUSH ONETIME STA Stop: 07/22/20 22:14 Last Admin: 07/22/20 22:15 Dose: 75 ml Documented by: Morphine Sulfate (Morphine) 2 mg IVPUSH Q4H PRN PRN Reason: Pain Last Admin: 07/23/20 01:42 Dose: 2 mg Documented by: Ondansetron HCl (Zofran) 4 mg IVPUSH ONETIME ONE Stop: 07/22/20 21:05 Last Admin: 07/22/20 21:21 Dose: 4 mg Documented by: - Exam GI/Abdominal Exam: Soft (mild tenderness), Other (wbc dropped to 10 from 13) Sepsis Event Note - Evaluation Sepsis Screening Result: No Definite Risk - Focused Exam Vital Signs: Vital Signs Temp Pulse Resp BP BP Pulse Ox 07/23/20 15:20 97.8 F 72 17 132/63 95 07/23/20 13:52 118/66 07/23/20 11:55 98.1 F 61 17 118/66 97 07/23/20 07:30 98.3 F 77 17 141/76 H 97 - Problem List Review Problem List Initiated/Reviewed/Updated: Yes - My Orders Last 24 Hours: Active Orders 24 hr Category Date Time Status Patient Status [ADT] Routine ADT 07/22/20 23:59 Active Antiembolic Devices [RC] PER UNIT ROUTINE Care 07/23/20 00:25 Active Blood Glucose Check, Bedside [RC] Q6H Care 07/23/20 07:00 Active Notify Provider Consults [RC] ASDIRECTED Care 07/23/20 10:32 Active Oxygen Therapy Adult [Oxygen Therapy] [RC] ASDIRECTED Care 07/23/20 00:23 Active Vital Signs [RC] Q4H Care 07/23/20 00:00 Active Consult to Physician [CONS] Routine Cons 07/23/20 10:31 Active NPO [Nothing Per Oral Diet] [DIET] Diet 07/23/20 Breakfast Active Abdomen Ltd [US] Routine Exams 07/23/20 10:38 Ordered CBC WITH AUTO DIFF [HEME] AM Lab 07/24/20 05:11 Ordered CMP [COMPREHENSIVE METABOLIC PN,CMP] [CHEM] AM Lab 07/24/20 05:11 Ordered HYDROmorphone [Dilaudid] Med 07/23/20 09:27 Active 0.5 mg IVPUSH Q4H PRN Lactated Ringers [Ringers, Lactated] 1,000 ml Med 07/23/20 00:30 Active IV ASDIRECTED Losartan [Cozaar] Med 07/23/20 14:00 Active 25 mg PO DAILY Ondansetron [Zofran] Med 07/23/20 00:26 Active 4 mg IVPUSH Q4H PRN Pantoprazole [ProTONIX IV] 40 mg Med 07/23/20 09:00 Active Sodium Chloride 0.9% [Normal Saline] 10 ml IV DAILY Piperacillin/Tazobactam [Piperacil-Tazobact] 3.375 gm Med 07/23/20 03:00 Active Sodium Chloride 0.9% [Normal Saline] 50 ml IV Q6H Sodium Chloride 0.9% [Saline Flush] Med 07/22/20 21:04 Active 10 ml FLUSH ASDIRECTED PRN Sodium Chloride 0.9% [Saline Flush] Med 07/22/20 21:04 Active 2.5 ml FLUSH ASDIRECTED PRN diphenhydrAMINE [Benadryl] Med 07/23/20 17:54 Active 25 mg PO BEDTIME PRN SCD [Sequential Compression Device] [OM.PC] Routine Oth 07/23/20 00:25 Ordered Saline Lock Insert [OM.PC] Stat Oth 07/22/20 21:04 Ordered Code Status [Resuscitation Status] Routine Resus Stat 07/23/20 11:09 Ordered Medication Orders Diphenhydramine HCl (Benadryl) 25 mg PO BEDTIME PRN PRN Reason: Sleep Hydromorphone HCl (Dilaudid) 0.5 mg IVPUSH Q4H PRN PRN Reason: Pain Last Admin: 07/23/20 14:39 Dose: 0.5 mg Documented by: Admin: 07/23/20 09:54 Dose: 0.5 mg Documented by: GIGI Lactated Ringer's (Ringers, Lactated) 1,000 mls @ 125 mls/hr IV ASDIRECTED [facility] Last Admin: 07/23/20 11:52 Dose: 125 mls/hr Documented by: Infusion: 07/23/20 10:16 Dose: 125 mls/hr Documented by: Admin: 07/23/20 02:16 Dose: 125 mls/hr Documented by: DANITA Pantoprazole Sodium 40 mg/ (Sodium Chloride) 10 mls @ 300 mls/hr IV DAILY [facility] Last Admin: 07/23/20 08:51 Dose: 300 mls/hr Documented by: GIGI Piperacillin Sod/Tazobactam (Sod 3.375 gm/ Sodium Chloride) 50 mls @ 100 mls/hr IV Q6H [facility] Last Admin: 07/23/20 14:40 Dose: 100 mls/hr Documented by: Infusion: 07/23/20 09:21 Dose: 100 mls/hr Documented by: Admin: 07/23/20 08:51 Dose: 100 mls/hr Documented by: Infusion: 07/23/20 03:25 Dose: 100 mls/hr Documented by: Admin: 07/23/20 02:55 Dose: 100 mls/hr Documented by: DANITA Losartan Potassium (Cozaar) 25 mg PO DAILY [facility] Last Admin: 07/23/20 13:52 Dose: 25 mg Documented by: GIGI Ondansetron HCl (Zofran) 4 mg IVPUSH Q4H PRN PRN Reason: Nausea/Vomiting Last Admin: 07/23/20 08:51 Dose: 4 mg Documented by: Admin: 07/23/20 01:40 Dose: 4 mg Documented by: DANITA Sodium Chloride (Saline Flush) 10 ml FLUSH ASDIRECTED PRN PRN Reason: Keep Vein Open Last Admin: 07/22/20 21:26 Dose: 10 ml Documented by: BETTYE Sodium Chloride (Saline Flush) 2.5 ml FLUSH ASDIRECTED PRN PRN Reason: Keep Vein Open Last Admin: 07/22/20 21:26 Dose: 2.5 ml Documented by: BETTYE - Assessment Assessment (Free Text/Narrative):: diverticulitis w mircroperforation; on iv abx, npo, ice chips; wbc is dropping to 10; continue present management - Plan Plan (Free Text/Narrative):: diverticulitis w mircroperforation; on iv abx, npo, ice chips; wbc is dropping to 10; continue present management
[2020-07-23] MEDS ORDERED: Magnesium Sulfate/Water 2 GM in Premix Bag 1 BAG IV ONE (19:04)
[2020-07-24] MEDS ORDERED: 50% Dextrose in Water 50 ML Syringe IVPUSH ONE (00:25)
[2020-07-24] MEDS ORDERED: Dextrose 5%-Lactated Ringers 1,000 ML IV SCH (00:30)
[2020-07-24] MEDS: Piperacillin/Tazobactam 3.375 GM in Sodium Chloride 0.9% 50 ML IV SCH ×2 (03:41→10:21)
[2020-07-24 06:33] LABS: BLOOD UREA NITROGEN,BUN 5 mg/dL (7.0-18.0); CHLORIDE,CL 105 mmol/L (98-107); GLUCOSE RANDOM 106 mg/dL (74-106); POTASSIUM,K 3.6 mmol/L (3.5-5.1); SODIUM,NA 140 mmol/L (136-145)
[2020-07-24] MEDS: HYDROmorphone 2 MG/ML Syringe IVPUSH PRN (07:18)
--- NOTE | 2020-07-24 08:46 | US ---
Limited abdominal ultrasound: Multiple real-time images of the upper right abdomen were obtained. Visualized portions of the pancreas shows no discrete abnormality. Liver contains no focal abnormality. Gallbladder wall shows some areas of wall thickening but no shadowing gallstones, pericholecystic fluid or biliary duct dilatation is seen. Right kidney shows no hydronephrosis or mass. Right kidney shows a lower pole cyst measuring approximately 3.0 cm. Aorta shows no aneurysm. Impression: 1. Slight areas of gallbladder wall thickening but no gallstones or other abnormality is appreciated. 2. Lower pole right renal cyst. 3. No additional abnormality is appreciated on right upper quadrant abdominal ultrasound. Diagnostic code #3 This report was dictated in MDT
[2020-07-24] MEDS: Losartan 50 MG Tab PO SCH (10:22)
[2020-07-24] MEDS: Pantoprazole 40 MG in Sodium Chloride 0.9% 10 ML IV SCH (10:22)
[2020-07-24] MEDS ORDERED: Acetaminophen/oxyCODONE 325-5 MG Tab PO PRN (15:14)
[2020-07-24] MEDS ORDERED: Ciprofloxacin 500 MG Tab PO SCH (15:15)
[2020-07-24] MEDS ORDERED: metroNIDAZOLE 250 MG Tab PO SCH (15:15)
--- NOTE | 2020-07-24 15:27 | PCM.SURGPN ---
- General Info Date of Service: 07/24/20 Admission Diagnosis/Problem: Diverticulitis Functional Status: Reports: Pain Controlled (no pain meds X 12 hrs. BM X 1, and is hungry) - Review of Systems General: Reports: No Symptoms - Patient Data Vitals - Most Recent: Last Vital Signs Temp 97.8 F 07/24/20 12:00 Pulse 64 07/24/20 12:00 Resp 20 07/24/20 12:00 BP 144/68 H 07/24/20 12:00 Pulse Ox 96 07/24/20 12:00 Weight - Most Recent: 192 lb 1.6 oz I&O - Last 24 Hours: Intake & Output 07/24/20 07/24/20 07/24/20 06:59 14:59 22:59 Intake Total 1553 Output Total 1250 Balance 303 Lab Results Last 24 Hrs: Laboratory Results - last 24 hr 07/23/20 07/24/20 07/24/20 Range/Units 19:14 00:00 05:07 WBC 7.88 (4.0-11.0) K/uL RBC 4.03 L (4.30-5.90) M/uL Hgb 12.5 (12.0-16.0) g/dL Hct 37.9 (36.0-46.0) % MCV 94.0 (80.0-98.0) fL MCH 31.0 (27.0-32.0) pg MCHC 33.0 (31.0-37.0) g/dL RDW Std Deviation 44.4 (28.0-62.0) fl RDW Coeff of Tushar 13 (11.0-15.0) % Plt Count 245 (150-400) K/uL MPV 9.30 (7.40-12.00) fL Neut % (Auto) 73.1 (48.0-80.0) % Lymph % (Auto) 14.7 L (16.0-40.0) % Callaway % (Auto) 10.8 (0.0-15.0) % Eos % (Auto) 1.3 (0.0-7.0) % Baso % (Auto) 0.1 (0.0-1.5) % Neut # (Auto) 5.8 H (1.4-5.7) K/uL Lymph # (Auto) 1.2 (0.6-2.4) K/uL Callaway # (Auto) 0.9 H (0.0-0.8) K/uL Eos # (Auto) 0.1 (0.0-0.7) K/uL Baso # (Auto) 0.0 (0.0-0.1) K/uL Nucleated RBC % 0.0 /100WBC Nucleated RBCs # 0 K/uL Sodium (136-145) mmol/L Potassium (3.5-5.1) mmol/L Chloride (98-107) mmol/L Carbon Dioxide (21.0-32.0) mmol/L BUN (7.0-18.0) mg/dL Creatinine (0.6-1.0) mg/dL Est Cr Clr Drug Dosing mL/min Estimated GFR (MDRD) ml/min Glucose (74-106) mg/dL POC Glucose 98 71 (60-110) mg/dL Calcium (8.5-10.1) mg/dL Total Bilirubin (0.2-1.0) mg/dL AST (15-37) IU/L ALT (14-63) IU/L Alkaline Phosphatase (46-116) U/L Total Protein (6.4-8.2) g/dL Albumin (3.4-5.0) g/dL Globulin (2.6-4.0) g/dL Albumin/Globulin Ratio (0.9-1.6) 07/24/20 07/24/20 07/24/20 Range/Units 05:07 07:03 11:39 WBC (4.0-11.0) K/uL RBC (4.30-5.90) M/uL Hgb (12.0-16.0) g/dL Hct (36.0-46.0) % MCV (80.0-98.0) fL MCH (27.0-32.0) pg MCHC (31.0-37.0) g/dL RDW Std Deviation (28.0-62.0) fl RDW Coeff of Tushar (11.0-15.0) % Plt Count (150-400) K/uL MPV (7.40-12.00) fL Neut % (Auto) (48.0-80.0) % Lymph % (Auto) (16.0-40.0) % Callaway % (Auto) (0.0-15.0) % Eos % (Auto) (0.0-7.0) % Baso % (Auto) (0.0-1.5) % Neut # (Auto) (1.4-5.7) K/uL Lymph # (Auto) (0.6-2.4) K/uL Callaway # (Auto) (0.0-0.8) K/uL Eos # (Auto) (0.0-0.7) K/uL Baso # (Auto) (0.0-0.1) K/uL Nucleated RBC % /100WBC Nucleated RBCs # K/uL Sodium 140 (136-145) mmol/L Potassium 3.6 (3.5-5.1) mmol/L Chloride 105 (98-107) mmol/L Carbon Dioxide 23.0 (21.0-32.0) mmol/L BUN 5 L (7.0-18.0) mg/dL Creatinine 0.8 (0.6-1.0) mg/dL Est Cr Clr Drug Dosing 64.76 mL/min Estimated GFR (MDRD) > 60.0 ml/min Glucose 106 (74-106) mg/dL POC Glucose 121 H 91 (60-110) mg/dL Calcium 9.0 (8.5-10.1) mg/dL Total Bilirubin 0.5 (0.2-1.0) mg/dL AST 28 (15-37) IU/L ALT 86 H (14-63) IU/L Alkaline Phosphatase 159 H (46-116) U/L Total Protein 6.1 L (6.4-8.2) g/dL Albumin 2.6 L (3.4-5.0) g/dL Globulin 3.5 (2.6-4.0) g/dL Albumin/Globulin Ratio 0.7 L (0.9-1.6) Med Orders - Current: Current Medications Diphenhydramine HCl (Benadryl) 25 mg PO BEDTIME PRN PRN Reason: Sleep Last Admin: 07/23/20 21:17 Dose: 25 mg Documented by: Hydromorphone HCl (Dilaudid) 0.5 mg IVPUSH Q4H PRN PRN Reason: Pain Last Admin: 07/24/20 07:18 Dose: 0.5 mg Documented by: Pantoprazole Sodium 40 mg/ (Sodium Chloride) 10 mls @ 300 mls/hr IV DAILY [facility] Last Admin: 07/24/20 10:22 Dose: 300 mls/hr Documented by: Piperacillin Sod/Tazobactam (Sod 3.375 gm/ Sodium Chloride) 50 mls @ 100 mls/hr IV Q6H [facility] Last Admin: 07/24/20 10:21 Dose: 100 mls/hr Documented by: Losartan Potassium (Cozaar) 25 mg PO DAILY [facility] Last Admin: 07/24/20 10:22 Dose: 25 mg Documented by: Ondansetron HCl (Zofran) 4 mg IVPUSH Q4H PRN PRN Reason: Nausea/Vomiting Last Admin: 07/23/20 08:51 Dose: 4 mg Documented by: Sodium Chloride (Saline Flush) 10 ml FLUSH ASDIRECTED PRN PRN Reason: Keep Vein Open Last Admin: 07/22/20 21:26 Dose: 10 ml Documented by: Sodium Chloride (Saline Flush) 2.5 ml FLUSH ASDIRECTED PRN PRN Reason: Keep Vein Open Last Admin: 07/22/20 21:26 Dose: 2.5 ml Documented by: Discontinued Medications Dextrose/Water (Dextrose 50% In Water) 25 ml IVPUSH ONETIME ONE Stop: 07/24/20 00:26 Last Admin: 07/24/20 00:50 Dose: 25 ml Documented by: Hydromorphone HCl (Dilaudid) 0.5 mg IVPUSH ONETIME ONE Stop: 07/22/20 21:05 Last Admin: 07/22/20 21:23 Dose: 0.5 mg Documented by: Hydromorphone HCl (Dilaudid) 1 mg IVPUSH ONETIME ONE Stop: 07/22/20 22:50 Last Admin: 07/22/20 23:06 Dose: 1 mg Documented by: Sodium Chloride (Normal Saline) 1,000 mls @ 999 mls/hr IV .Bolus ONE Stop: 07/22/20 22:04 Last Admin: 07/22/20 21:19 Dose: 999 mls/hr Documented by: Levofloxacin/Dextrose 750 mg/ (Premix) 150 mls @ 100 mls/hr IV ONETIME ONE Stop: 07/23/20 00:44 Last Admin: 07/23/20 00:52 Dose: 100 mls/hr Documented by: Metronidazole 500 mg/ Premix 100 mls @ 100 mls/hr IV ONETIME ONE Stop: 07/23/20 00:14 Last Admin: 07/22/20 23:31 Dose: 100 mls/hr Documented by: Metronidazole 500 mg/ Premix 100 mls @ 100 mls/hr IV ONETIME ONE Stop: 07/23/20 00:28 Last Admin: 07/22/20 23:31 Dose: Not Given Documented by: Lactated Ringer's (Ringers, Lactated) 1,000 mls @ 125 mls/hr IV ASDIRECTED [facility] Last Admin: 07/23/20 22:28 Dose: 125 mls/hr Documented by: Magnesium Sulfate 2 gm/ Premix 50 mls @ 50 mls/hr IV ONETIME ONE Stop: 07/23/20 20:03 Last Admin: 07/23/20 19:40 Dose: 50 mls/hr Documented by: Dextrose/Lactated Ringer's (Dextrose 5%-Lactated Ringers) 1,000 mls @ 125 mls/hr IV ASDIRECTED [facility] Last Admin: 07/24/20 00:55 Dose: 125 mls/hr Documented by: Iopamidol (Isovue-370 (76%)) 75 ml IVPUSH ONETIME STA Stop: 07/22/20 22:14 Last Admin: 07/22/20 22:15 Dose: 75 ml Documented by: Morphine Sulfate (Morphine) 2 mg IVPUSH Q4H PRN PRN Reason: Pain Last Admin: 07/23/20 01:42 Dose: 2 mg Documented by: Ondansetron HCl (Zofran) 4 mg IVPUSH ONETIME ONE Stop: 07/22/20 21:05 Last Admin: 07/22/20 21:21 Dose: 4 mg Documented by: - Exam GI/Abdominal Exam: Soft (minimal tenderness, no rebound; wbc 7) Sepsis Event Note - Evaluation Sepsis Screening Result: No Definite Risk - Focused Exam Vital Signs: Vital Signs Temp Pulse Resp BP BP Pulse Ox 07/24/20 12:00 97.8 F 64 20 144/68 H 96 07/24/20 10:22 143/68 H 07/24/20 03:53 97.8 F 70 16 156/73 H 95 - Problem List Review Problem List Initiated/Reviewed/Updated: Yes - My Orders Last 24 Hours: Active Orders 24 hr Category Date Time Status Clear Liquid Diet [DIET] Diet 07/24/20 Breakfast Active HEPATITIS PANEL (4) [REF] Routine Lab 07/24/20 06:40 Received diphenhydrAMINE [Benadryl] Med 07/23/20 17:54 Active 25 mg PO BEDTIME PRN Medication Orders Diphenhydramine HCl (Benadryl) 25 mg PO BEDTIME PRN PRN Reason: Sleep Last Admin: 07/23/20 21:17 Dose: 25 mg Documented by: DANITA Hydromorphone HCl (Dilaudid) 0.5 mg IVPUSH Q4H PRN PRN Reason: Pain Last Admin: 07/24/20 07:18 Dose: 0.5 mg Documented by: Admin: 07/23/20 14:39 Dose: 0.5 mg Documented by: Admin: 07/23/20 09:54 Dose: 0.5 mg Documented by: GIGI Pantoprazole Sodium 40 mg/ (Sodium Chloride) 10 mls @ 300 mls/hr IV DAILY [facility] Last Admin: 07/24/20 10:22 Dose: 300 mls/hr Documented by: Infusion: 07/23/20 08:53 Dose: 300 mls/hr Documented by: Admin: 07/23/20 08:51 Dose: 300 mls/hr Documented by: GIGI Piperacillin Sod/Tazobactam (Sod 3.375 gm/ Sodium Chloride) 50 mls @ 100 mls/hr IV Q6H [facility] Last Admin: 07/24/20 10:21 Dose: 100 mls/hr Documented by: Infusion: 07/24/20 04:11 Dose: 100 mls/hr Documented by: Admin: 07/24/20 03:41 Dose: 100 mls/hr Documented by: Infusion: 07/23/20 21:50 Dose: 100 mls/hr Documented by: Admin: 07/23/20 21:20 Dose: 100 mls/hr Documented by: Infusion: 07/23/20 15:10 Dose: 100 mls/hr Documented by: Admin: 07/23/20 14:40 Dose: 100 mls/hr Documented by: Infusion: 07/23/20 09:21 Dose: 100 mls/hr Documented by: Admin: 07/23/20 08:51 Dose: 100 mls/hr Documented by: Infusion: 07/23/20 03:25 Dose: 100 mls/hr Documented by: Admin: 07/23/20 02:55 Dose: 100 mls/hr Documented by: DANITA Losartan Potassium (Cozaar) 25 mg PO DAILY [facility] Last Admin: 07/24/20 10:22 Dose: 25 mg Documented by: Admin: 07/23/20 13:52 Dose: 25 mg Documented by: GIGI Ondansetron HCl (Zofran) 4 mg IVPUSH Q4H PRN PRN Reason: Nausea/Vomiting Last Admin: 07/23/20 08:51 Dose: 4 mg Documented by: Admin: 07/23/20 01:40 Dose: 4 mg Documented by: DANITA Sodium Chloride (Saline Flush) 10 ml FLUSH ASDIRECTED PRN PRN Reason: Keep Vein Open Last Admin: 07/22/20 21:26 Dose: 10 ml Documented by: BETTYE Sodium Chloride (Saline Flush) 2.5 ml FLUSH ASDIRECTED PRN PRN Reason: Keep Vein Open Last Admin: 07/22/20 21:26 Dose: 2.5 ml Documented by: BETTYE - Assessment Assessment (Free Text/Narrative):: Responded well to IV abx; pain subsided, feeling hungry, had BM, WBC dropped to 7; agree w starting clear, if tolerate would adv to full in the morning; pt should stay at full liquid diet X 4 - 5 more days at home; if continue to do well, no pain/fever, then adv to regular low fiber diet; stay with low fiber diet till colonoscopy in 6 - 8 wks; may switch to hi fiber diet in 3 months. Would benefit with abx X 3 wks; Pt has microperforated diverticulitis, hi risks for turning into macro perforation, and would require emergency surgery and a Hartmans colostomy. Pt has been given information about microperf and macroperf, and Hartmans colostomy. She would benefit from having liquid diet at least 5 days before starting regular diet to avoid risk of turning into macroperf and abd abscess. If discharged, fu w me in 1 - 2 wks; Will continue to follow pt with you - Plan Plan (Free Text/Narrative):: Responded well to IV abx; pain subsided, feeling hungry, had BM, WBC dropped to 7; agree w starting clear, if tolerate would adv to full in the morning; pt should stay at full liquid diet X 4 - 5 more days at home; if continue to do well, no pain/fever, then adv to regular low fiber diet; stay with low fiber diet till colonoscopy in 6 - 8 wks; may switch to hi fiber diet in 3 months. Would benefit with abx X 3 wks; Pt has microperforated diverticulitis, hi risks for turning into macro perforation, and would require emergency surgery and a Hartmans colostomy. Pt has been given information about microperf and macroperf, and Hartmans colostomy. She would benefit from having liquid diet at least 5 days before starting regular diet to avoid risk of turning into macroperf and abd abscess. If discharged, fu w me in 1 - 2 wks; Will continue to follow pt with you
--- NOTE | 2020-07-24 20:33 | PCM.DCSUM1 ---
<Bunny Becker - Last Filed: 07/24/20 20:33> Discharge Summary - Hospital Course Free Text/Narrative:: 64-year-old female admitted for non surgical management of diverticulitis. Patient has no GI PMH and states only hypertension. Patient states social alcohol usage but no illicit drug use. Patient does take Tylenol regularly. CT Abdo was obtained which showed diverticulitis of the sigmoid colon. Patient did have elevated transaminases (AST 118, ALT 191) and elevated alk phos (273) on admission. US Liver/Gallbladder was performed which revealed no cholelithiasis or cholecystitis. Surgery was consulted who recommended non-surgical treatment (IV fluids, NPO, IV antibiotics, pain control). On 07-24-2020, recommendation was by the medical/surgical team that the patient stay for one more day of treatment. Patient did not want to stay another night and stated that she felt fine and that she could manage her condition at home. By afternoon time the patient became extremely adamant to leave. She was discharged later that evening and given prescriptions for Ciprofloxacin, Flagyl, Percocet. Patent was advised to follow up with surgery, take antibiotics for 2 weeks and have a follow up colonoscopy in 2 months. Patient agreed. Diagnosis: Stroke: No - Discharge Data Discharge Date: 07/24/20 Discharge Disposition: Home, Self-Care 01 Condition: Good - Referral to Home Health Primary Care Physician: Maira Escobedo MD - Patient Summary/Data Consults: Consultations 07/23/20 10:31 Consult to Physician [CONS] Routine - Patient Instructions Diet: Clear Liquid Diet Activity: As Tolerated Showering/Bathing: May Shower Notify Provider of: Fever, Increased Pain, Swelling and Redness, Nausea and/or Vomiting - Discharge Plan *PRESCRIPTION DRUG MONITORING PROGRAM REVIEWED*: Not Applicable *COPY OF PRESCRIPTION DRUG MONITORING REPORT IN PATIENT EH: Not Applicable Prescriptions/Med Rec: Ciprofloxacin [Ciprofloxacin HCl] 500 mg PO BID 12 Days #24 tablet metroNIDAZOLE 500 mg PO Q8H 12 Days #36 tablet Acetaminophen/oxyCODONE [Percocet 325-5 MG] 1 tab PO Q6HR PRN 4 Days #16 tablet PRN Reason: Pain Home Medications: Home Meds Losartan Potassium 25 mg PO DAILY 07/22/20 [History] Acetaminophen/oxyCODONE [Percocet 325-5 MG] 1 tab PO Q6HR PRN 4 Days #16 tablet 07/24/20 [Rx] Ciprofloxacin [Ciprofloxacin HCl] 500 mg PO BID 12 Days #24 tablet 07/24/20 [Rx] metroNIDAZOLE 500 mg PO Q8H 12 Days #36 tablet 07/24/20 [Rx] Patient Handouts: Diverticulitis, [id number], Acetaminophen; Oxycodone tablets, Ciprofloxacin tablets, Metronidazole tablets or capsules, [place] Diet Referrals: Maira Escobedo MD [Primary Care Provider] - (Message was left with [facility] regarding an appiontment for you; they should be contacting you tomorrow, please follow up if they do not call. This will be for a 'hospital follow up appointment' in 1-2 weeks regarding diverticulitis.) Garrick Connolly MD [Physician] - (Please call the specialty clinic in the morning to make a 'hospital follow appointment' with Dr. Connolly in two weeks pertaining to this hospital stay for diverticulitis; you may call the clinic earlier with any concerns. ) - Discharge Summary/Plan Comment DC Time >30 min.: Yes (Medication managment, follow up care) - General Info Date of Service: 07/24/20 Subjective Update: Patient states that she feels fine and that she would like to go home. Patient denies nausea, vomiting, fever, chills. Patient did have one bout of diarrhea and still complained of mild abdominal pain which was worse with movement. . - Review of Systems General: Denies: Fever, Weakness, Fatigue HEENT: Reports: Headaches Pulmonary: Denies: Shortness of Breath, Pleuritic Chest Pain, Cough, Wheezing Cardiovascular: Denies: Chest Pain, Palpitations, Dyspnea on Exertion Gastrointestinal: Reports: Abdominal Pain, Diarrhea. Denies: Difficulty Swallowing, Nausea, Vomiting Neurological: Reports: Headache. Denies: Confusion, Dizziness - Patient Data Vitals - Most Recent: Last Vital Signs Temp 97.1 F 07/24/20 16:00 Pulse 67 07/24/20 16:00 Resp 20 07/24/20 16:00 BP 148/73 H 07/24/20 16:00 Pulse Ox 98 07/24/20 16:00 Weight - Most Recent: 87.135 kg I&O - Last 24 hours: Intake & Output 07/24/20 07/24/20 07/24/20 06:59 14:59 22:59 Intake Total 1553 Output Total 1250 Balance 303 Lab Results - Last 24 hrs: Laboratory Results - last 24 hr 07/23/20 07/24/20 07/24/20 Range/Units 19:14 00:00 05:07 WBC 7.88 (4.0-11.0) K/uL RBC 4.03 L (4.30-5.90) M/uL Hgb 12.5 (12.0-16.0) g/dL Hct 37.9 (36.0-46.0) % MCV 94.0 (80.0-98.0) fL MCH 31.0 (27.0-32.0) pg MCHC 33.0 (31.0-37.0) g/dL RDW Std Deviation 44.4 (28.0-62.0) fl RDW Coeff of Tushar 13 (11.0-15.0) % Plt Count 245 (150-400) K/uL MPV 9.30 (7.40-12.00) fL Neut % (Auto) 73.1 (48.0-80.0) % Lymph % (Auto) 14.7 L (16.0-40.0) % Thayer % (Auto) 10.8 (0.0-15.0) % Eos % (Auto) 1.3 (0.0-7.0) % Baso % (Auto) 0.1 (0.0-1.5) % Neut # (Auto) 5.8 H (1.4-5.7) K/uL Lymph # (Auto) 1.2 (0.6-2.4) K/uL Thayer # (Auto) 0.9 H (0.0-0.8) K/uL Eos # (Auto) 0.1 (0.0-0.7) K/uL Baso # (Auto) 0.0 (0.0-0.1) K/uL Nucleated RBC % 0.0 /100WBC Nucleated RBCs # 0 K/uL Sodium (136-145) mmol/L Potassium (3.5-5.1) mmol/L Chloride (98-107) mmol/L Carbon Dioxide (21.0-32.0) mmol/L BUN (7.0-18.0) mg/dL Creatinine (0.6-1.0) mg/dL Est Cr Clr Drug Dosing mL/min Estimated GFR (MDRD) ml/min Glucose (74-106) mg/dL POC Glucose 98 71 (60-110) mg/dL Calcium (8.5-10.1) mg/dL Total Bilirubin (0.2-1.0) mg/dL AST (15-37) IU/L ALT (14-63) IU/L Alkaline Phosphatase (46-116) U/L Total Protein (6.4-8.2) g/dL Albumin (3.4-5.0) g/dL Globulin (2.6-4.0) g/dL Albumin/Globulin Ratio (0.9-1.6) 07/24/20 07/24/20 07/24/20 Range/Units 05:07 07:03 11:39 WBC (4.0-11.0) K/uL RBC (4.30-5.90) M/uL Hgb (12.0-16.0) g/dL Hct (36.0-46.0) % MCV (80.0-98.0) fL MCH (27.0-32.0) pg MCHC (31.0-37.0) g/dL RDW Std Deviation (28.0-62.0) fl RDW Coeff of Tushar (11.0-15.0) % Plt Count (150-400) K/uL MPV (7.40-12.00) fL Neut % (Auto) (48.0-80.0) % Lymph % (Auto) (16.0-40.0) % Thayer % (Auto) (0.0-15.0) % Eos % (Auto) (0.0-7.0) % Baso % (Auto) (0.0-1.5) % Neut # (Auto) (1.4-5.7) K/uL Lymph # (Auto) (0.6-2.4) K/uL Thayer # (Auto) (0.0-0.8) K/uL Eos # (Auto) (0.0-0.7) K/uL Baso # (Auto) (0.0-0.1) K/uL Nucleated RBC % /100WBC Nucleated RBCs # K/uL Sodium 140 (136-145) mmol/L Potassium 3.6 (3.5-5.1) mmol/L Chloride 105 (98-107) mmol/L Carbon Dioxide 23.0 (21.0-32.0) mmol/L BUN 5 L (7.0-18.0) mg/dL Creatinine 0.8 (0.6-1.0) mg/dL Est Cr Clr Drug Dosing 64.76 mL/min Estimated GFR (MDRD) > 60.0 ml/min Glucose 106 (74-106) mg/dL POC Glucose 121 H 91 (60-110) mg/dL Calcium 9.0 (8.5-10.1) mg/dL Total Bilirubin 0.5 (0.2-1.0) mg/dL AST 28 (15-37) IU/L ALT 86 H (14-63) IU/L Alkaline Phosphatase 159 H (46-116) U/L Total Protein 6.1 L (6.4-8.2) g/dL Albumin 2.6 L (3.4-5.0) g/dL Globulin 3.5 (2.6-4.0) g/dL Albumin/Globulin Ratio 0.7 L (0.9-1.6) Med Orders - Current: Current Medications Discontinued Medications Ciprofloxacin (Ciprofloxacin Hcl) 500 mg PO BID HERNESTO Last Admin: 07/24/20 16:19 Dose: 500 mg Documented by: Dextrose/Water (Dextrose 50% In Water) 25 ml IVPUSH ONETIME ONE Stop: 07/24/20 00:26 Last Admin: 07/24/20 00:50 Dose: 25 ml Documented by: Diphenhydramine HCl (Benadryl) 25 mg PO BEDTIME PRN PRN Reason: Sleep Last Admin: 07/23/20 21:17 Dose: 25 mg Documented by: Hydromorphone HCl (Dilaudid) 0.5 mg IVPUSH ONETIME ONE Stop: 07/22/20 21:05 Last Admin: 07/22/20 21:23 Dose: 0.5 mg Documented by: Hydromorphone HCl (Dilaudid) 1 mg IVPUSH ONETIME ONE Stop: 07/22/20 22:50 Last Admin: 07/22/20 23:06 Dose: 1 mg Documented by: Hydromorphone HCl (Dilaudid) 0.5 mg IVPUSH Q4H PRN PRN Reason: Pain Last Admin: 07/24/20 07:18 Dose: 0.5 mg Documented by: Sodium Chloride (Normal Saline) 1,000 mls @ 999 mls/hr IV .Bolus ONE Stop: 07/22/20 22:04 Last Admin: 07/22/20 21:19 Dose: 999 mls/hr Documented by: Levofloxacin/Dextrose 750 mg/ (Premix) 150 mls @ 100 mls/hr IV ONETIME ONE Stop: 07/23/20 00:44 Last Admin: 07/23/20 00:52 Dose: 100 mls/hr Documented by: Metronidazole 500 mg/ Premix 100 mls @ 100 mls/hr IV ONETIME ONE Stop: 07/23/20 00:14 Last Admin: 07/22/20 23:31 Dose: 100 mls/hr Documented by: Metronidazole 500 mg/ Premix 100 mls @ 100 mls/hr IV ONETIME ONE Stop: 07/23/20 00:28 Last Admin: 07/22/20 23:31 Dose: Not Given Documented by: Lactated Ringer's (Ringers, Lactated) 1,000 mls @ 125 mls/hr IV ASDIRECTED [facility] Last Admin: 07/23/20 22:28 Dose: 125 mls/hr Documented by: Pantoprazole Sodium 40 mg/ (Sodium Chloride) 10 mls @ 300 mls/hr IV DAILY [facility] Last Admin: 07/24/20 10:22 Dose: 300 mls/hr Documented by: Piperacillin Sod/Tazobactam (Sod 3.375 gm/ Sodium Chloride) 50 mls @ 100 mls/hr IV Q6H [facility] Last Admin: 07/24/20 10:21 Dose: 100 mls/hr Documented by: Magnesium Sulfate 2 gm/ Premix 50 mls @ 50 mls/hr IV ONETIME ONE Stop: 07/23/20 20:03 Last Admin: 07/23/20 19:40 Dose: 50 mls/hr Documented by: Dextrose/Lactated Ringer's (Dextrose 5%-Lactated Ringers) 1,000 mls @ 125 mls/hr IV ASDIRECTED [facility] Last Admin: 07/24/20 00:55 Dose: 125 mls/hr Documented by: Iopamidol (Isovue-370 (76%)) 75 ml IVPUSH ONETIME STA Stop: 07/22/20 22:14 Last Admin: 07/22/20 22:15 Dose: 75 ml Documented by: Losartan Potassium (Cozaar) 25 mg PO DAILY [facility] Last Admin: 07/24/20 10:22 Dose: 25 mg Documented by: Metronidazole (Metronidazole) 500 mg PO Q8H HERNESTO Last Admin: 07/24/20 16:19 Dose: 500 mg Documented by: Morphine Sulfate (Morphine) 2 mg IVPUSH Q4H PRN PRN Reason: Pain Last Admin: 07/23/20 01:42 Dose: 2 mg Documented by: Ondansetron HCl (Zofran) 4 mg IVPUSH ONETIME ONE Stop: 07/22/20 21:05 Last Admin: 07/22/20 21:21 Dose: 4 mg Documented by: Ondansetron HCl (Zofran) 4 mg IVPUSH Q4H PRN PRN Reason: Nausea/Vomiting Last Admin: 07/23/20 08:51 Dose: 4 mg Documented by: Oxycodone/Acetaminophen (Percocet 325-5 Mg) 1 tab PO Q4H PRN PRN Reason: Pain Sodium Chloride (Saline Flush) 10 ml FLUSH ASDIRECTED PRN PRN Reason: Keep Vein Open Last Admin: 07/22/20 21:26 Dose: 10 ml Documented by: Sodium Chloride (Saline Flush) 2.5 ml FLUSH ASDIRECTED PRN PRN Reason: Keep Vein Open Last Admin: 07/22/20 21:26 Dose: 2.5 ml Documented by: <Radha Nguyễn - Last Filed: 07/25/20 12:55> Discharge Summary - Hospital Course Free Text/Narrative:: I performed a history and physical exam of the patient and discussed management with resident. I have reviewed the residents note and agree with documented findings and plan unless otherwise specified in my note. - Referral to Home Health Primary Care Physician: Maira Escobedo MD - Patient Summary/Data Consults: Consultations 07/23/20 10:31 Consult to Physician [CONS] Routine - Patient Data Vitals - Most Recent: Last Vital Signs Temp 36.2 C 07/24/20 16:00 Pulse 67 07/24/20 16:00 Resp 20 07/24/20 16:00 BP 148/73 H 07/24/20 16:00 Pulse Ox 98 07/24/20 16:00 Med Orders - Current: Current Medications Discontinued Medications Ciprofloxacin (Ciprofloxacin Hcl) 500 mg PO BID HERNESTO Last Admin: 07/24/20 16:19 Dose: 500 mg Documented by: Dextrose/Water (Dextrose 50% In Water) 25 ml IVPUSH ONETIME ONE Stop: 07/24/20 00:26 Last Admin: 07/24/20 00:50 Dose: 25 ml Documented by: Diphenhydramine HCl (Benadryl) 25 mg PO BEDTIME PRN PRN Reason: Sleep Last Admin: 07/23/20 21:17 Dose: 25 mg Documented by: Hydromorphone HCl (Dilaudid) 0.5 mg IVPUSH ONETIME ONE Stop: 07/22/20 21:05 Last Admin: 07/22/20 21:23 Dose: 0.5 mg Documented by: Hydromorphone HCl (Dilaudid) 1 mg IVPUSH ONETIME ONE Stop: 07/22/20 22:50 Last Admin: 07/22/20 23:06 Dose: 1 mg Documented by: Hydromorphone HCl (Dilaudid) 0.5 mg IVPUSH Q4H PRN PRN Reason: Pain Last Admin: 07/24/20 07:18 Dose: 0.5 mg Documented by: Sodium Chloride (Normal Saline) 1,000 mls @ 999 mls/hr IV .Bolus ONE Stop: 07/22/20 22:04 Last Admin: 07/22/20 21:19 Dose: 999 mls/hr Documented by: Levofloxacin/Dextrose 750 mg/ (Premix) 150 mls @ 100 mls/hr IV ONETIME ONE Stop: 07/23/20 00:44 Last Admin: 07/23/20 00:52 Dose: 100 mls/hr Documented by: Metronidazole 500 mg/ Premix 100 mls @ 100 mls/hr IV ONETIME ONE Stop: 07/23/20 00:14 Last Admin: 07/22/20 23:31 Dose: 100 mls/hr Documented by: Metronidazole 500 mg/ Premix 100 mls @ 100 mls/hr IV ONETIME ONE Stop: 07/23/20 00:28 Last Admin: 07/22/20 23:31 Dose: Not Given Documented by: Lactated Ringer's (Ringers, Lactated) 1,000 mls @ 125 mls/hr IV ASDIRECTED [facility] Last Admin: 07/23/20 22:28 Dose: 125 mls/hr Documented by: Pantoprazole Sodium 40 mg/ (Sodium Chloride) 10 mls @ 300 mls/hr IV DAILY [facility] Last Admin: 07/24/20 10:22 Dose: 300 mls/hr Documented by: Piperacillin Sod/Tazobactam (Sod 3.375 gm/ Sodium Chloride) 50 mls @ 100 mls/hr IV Q6H [facility] Last Admin: 07/24/20 10:21 Dose: 100 mls/hr Documented by: Magnesium Sulfate 2 gm/ Premix 50 mls @ 50 mls/hr IV ONETIME ONE Stop: 07/23/20 20:03 Last Admin: 07/23/20 19:40 Dose: 50 mls/hr Documented by: Dextrose/Lactated Ringer's (Dextrose 5%-Lactated Ringers) 1,000 mls @ 125 mls/hr IV ASDIRECTED [facility] Last Admin: 07/24/20 00:55 Dose: 125 mls/hr Documented by: Iopamidol (Isovue-370 (76%)) 75 ml IVPUSH ONETIME STA Stop: 07/22/20 22:14 Last Admin: 07/22/20 22:15 Dose: 75 ml Documented by: Losartan Potassium (Cozaar) 25 mg PO DAILY [facility] Last Admin: 07/24/20 10:22 Dose: 25 mg Documented by: Metronidazole (Metronidazole) 500 mg PO Q8H [facility] Last Admin: 07/24/20 16:19 Dose: 500 mg Documented by: Morphine Sulfate (Morphine) 2 mg IVPUSH Q4H PRN PRN Reason: Pain Last Admin: 07/23/20 01:42 Dose: 2 mg Documented by: Ondansetron HCl (Zofran) 4 mg IVPUSH ONETIME ONE Stop: 07/22/20 21:05 Last Admin: 07/22/20 21:21 Dose: 4 mg Documented by: Ondansetron HCl (Zofran) 4 mg IVPUSH Q4H PRN PRN Reason: Nausea/Vomiting Last Admin: 07/23/20 08:51 Dose: 4 mg Documented by: Oxycodone/Acetaminophen (Percocet 325-5 Mg) 1 tab PO Q4H PRN PRN Reason: Pain Sodium Chloride (Saline Flush) 10 ml FLUSH ASDIRECTED PRN PRN Reason: Keep Vein Open Last Admin: 07/22/20 21:26 Dose: 10 ml Documented by: Sodium Chloride (Saline Flush) 2.5 ml FLUSH ASDIRECTED PRN PRN Reason: Keep Vein Open Last Admin: 07/22/20 21:26 Dose: 2.5 ml Documented by:
--- NOTE | 2020-07-26 09:49 | PCM.SN.2 ---
<Bunny Becker - Last Filed: 07/26/20 09:46> - Free Text/Narrative Note: Patient contacted and told results of her hepatitis panel, Positive for Hep C. Patient understands result. Patient recommended to see her PCP for follow up. Patient states that she feels fine post discharge but has not started antibiotics as of this day because she was not able to get to her pharmacy. She will get antibiotics today. <Radha Nguyễn - Last Filed: 08/02/20 13:40> - Free Text/Narrative Note: I agree with the residents note unless specified in my note
== END 2020-07-24 19:00 | disposition home or self-care (01) ==
LOC: MW.ED 20:45 → MW.MS 23:49 → INTOOBSV 23:49
PROVIDERS: ADMIT Student in an Organized Health Care Education/Training Program; ATTEND Student in an Organized Health Care Education/Training Program
DX: K57.80 Diverticulitis of intestine, part unspecified, with perforation and abscess without bleeding (principal); I10 Essential (primary) hypertension; N28.89 Other specified disorders of kidney and ureter; Z72.89 Other problems related to lifestyle; Z91.040 Latex allergy status; Z79.899 Other long term (current) drug therapy; Z87.891 Personal history of nicotine dependence; Z20.828 Contact with and (suspected) exposure to other viral communicable diseases
CPT/HCPCS: 36415; 74177; 76705; 80048; 80053; 80074; 81003; 82962; 83690; 83735; 84100; 85025; 96361; 96365; 96367; 96375; 96376; 99285; A9270; C9113; G0378; J1170; J1956; J2270; J2405; J2543; J3475; J3490; J7030; J7050; J7120; J7121; Q9967; U0002; 99213; 99214; 99217; 99218; 99284

== ENCOUNTER 2022-06-20 10:57 | Emergency (ER) | payer MEDICARE, MEDICAID | END 2022-06-20 12:11 | disposition home or self-care (01) | LOC: MW.ED 10:57 | DX: I10 Essential (primary) hypertension (principal); F41.9 Anxiety disorder, unspecified; F17.210 Nicotine dependence, cigarettes, uncomplicated; Z90.710 Acquired absence of both cervix and uterus; Z91.040 Latex allergy status; Z79.899 Other long term (current) drug therapy | CPT/HCPCS: 99283 ==

== ENCOUNTER 2023-04-06 03:54 | Emergency (ER) | payer MEDICARE, MEDICAID ==
[2023-04-06] MEDS ORDERED: Octyl 2-Cyanoacrylate 1 g/1 mL 1 APPLIC PEN TOP ONE (05:08)
[2023-04-06] MEDS ORDERED: Sodium Chloride 0.9% 10 ML Syringe FLUSH PRN (05:11)
[2023-04-06] MEDS ORDERED: Sodium Chloride 0.9% 20 ML SDV IV PRN (05:11)
[2023-04-06] MEDS ORDERED: Sodium Chloride 0.9% 2.5 ML Syringe FLUSH PRN (05:11)
[2023-04-06] MEDS ORDERED: Ondansetron 4 MG/2 ML SDV IVPUSH ONE (05:11)
[2023-04-06] MEDS ORDERED: Diphtheria/Tetanus Toxoids,Adult (Td) 0.5 ML Syringe IM ONE (05:11)
[2023-04-06] MEDS ORDERED: HYDROmorphone 1 MG/ML Syringe IVPUSH ONE (05:18)
[2023-04-06] MEDS ORDERED: Diphtheria,Pertussis(Acell),Tetanus Vaccine 0.5 ML Syringe IM ONE (05:18)
[2023-04-06 05:50] LABS: BASOPHILS ABSOLUTE AUTO 0.1 K/uL (0.0-0.1); BASOPHILS PERCENT AUTO 1.1 % (0.0-1.5); EOSINOPHILS ABSOLUTE AUTO 0.2 K/uL (0.0-0.7); HEMATOCRIT 39.2 % (36.0-46.0); HEMOGLOBIN 13.6 g/dL (12.0-16.0); LYMPHOCYTES PERCENT AUTO 38.8 % (16.0-40.0); MEAN CORPUSCULAR HEMOGLOBIN 32.2 pg (27.0-32.0); MEAN CORPUSCULAR HGB CONC 34.7 g/dL (31.0-37.0); MEAN CORPUSCULAR VOLUME 92.9 fL (80.0-98.0); MONOCYTES ABSOLUTE AUTO 0.5 K/uL (0.0-0.8); NEUTROPHILS ABSOLUTE AUTO 2.5 K/uL (1.4-5.7); NEUTROPHILS PERCENT AUTO 47.1 % (48.0-80.0); NRBC ABSOLUTE 0 K/uL; PLATELET COUNT,PLT 259 K/uL (150-400); RED BLOOD CELL COUNT 4.22 M/uL (4.30-5.90); WHITE BLOOD CELL COUNT,WBC 5.23 K/uL (4.0-11.0)
[2023-04-06 06:02] LABS: INR < 0.93 (0.86-1.11)
[2023-04-06 06:13] LABS: A/G RATIO 1.1 (0.9-1.6); ALBUMIN 3.4 g/dL (3.4-5.0); BILIRUBIN TOTAL 0.2 mg/dL (0.2-1.0); CALCIUM 8.7 mg/dL (8.5-10.1); CARBON DIOXIDE,CO2 21.9 mmol/L (21.0-32.0); CREATININE 0.8 mg/dL (0.6-1.0); EST CRCL DRUG DOSING (CG) 62.13 mL/min; POTASSIUM,K 4.1 mmol/L (3.5-5.1); PROTEIN TOTAL,TP 6.5 g/dL (6.4-8.2)
[2023-04-06] MEDS ORDERED: LORazepam 2 MG/ML SDV IVPUSH ONE (07:09)
== END 2023-04-06 07:14 ==
LOC: MW.ED 03:54
DX: S06.5XAA Traumatic subdural hemorrhage with loss of consciousness status unknown, initial encounter (principal); S01.81XA Laceration without foreign body of other part of head, initial encounter; Z23 Encounter for immunization; Z91.040 Latex allergy status; Z79.899 Other long term (current) drug therapy; W06.XXXA Fall from bed, initial encounter
CPT/HCPCS: 12011; 36415; 70450; 73030; 80053; 80307; 85025; 85610; 90471; 90715; 96374; 96375; 99285; A9270; J1170; J1953; J2060; J2405; J3490; J7060; 99283

== ENCOUNTER 2023-11-28 12:42 | Emergency (ER) | payer MEDICARE, MEDICAID ==
[2023-11-28] MEDS ORDERED: Sodium Chloride 0.9% 1,000 ML IV ONE (13:01)
[2023-11-28] MEDS ORDERED: Sodium Chloride 0.9% 2.5 ML Syringe FLUSH PRN (13:01)
[2023-11-28] MEDS ORDERED: Sodium Chloride 0.9% 10 ML Syringe FLUSH PRN (13:01)
[2023-11-28] MEDS ORDERED: Ketorolac 30 MG/ML SDV IVPUSH ONE (13:15)
[2023-11-28 13:27] LABS: BASOPHILS ABSOLUTE AUTO 0.07 K/uL (0.00-0.20); BASOPHILS PERCENT AUTO 1.4 % (0.0-1.0); EOSINOPHILS ABSOLUTE AUTO 0.21 K/uL (0.00-0.45); EOSINOPHILS PERCENT AUTO 4.2 % (0.0-6.0); HEMATOCRIT 44.1 % (37.0-47.0); HEMOGLOBIN 14.9 g/dL (12.0-16.0); IMMATURE GRAN ABSOLUTE AUTO 0.01 K/uL (0.00-0.05); IMMATURE GRAN PERCENT AUTO 0.2 % (0.0-0.4); LYMPHOCYTES ABSOLUTE AUTO 1.72 K/uL (1.00-4.80); LYMPHOCYTES PERCENT AUTO 34.7 % (24.0-44.0); MEAN CORPUSCULAR HEMOGLOBIN 31.7 pg (28.0-32.0); MEAN CORPUSCULAR HGB CONC 33.8 g/dL (32.0-36.0); MEAN CORPUSCULAR VOLUME 93.8 fL (83.0-99.0); MEAN PLATELET VOLUME 9.2 fL (9.4-12.3); MONOCYTES PERCENT AUTO 12.1 % (0.0-8.0); NEUTROPHILS ABSOLUTE AUTO 2.35 K/uL (1.80-7.70); NEUTROPHILS PERCENT AUTO 47.4 % (41.0-71.0); PLATELET COUNT,PLT 281 K/uL (150-400); WHITE BLOOD CELL COUNT,WBC 4.96 K/uL (3.9-11.3)
[2023-11-28 13:50] LABS: A/G RATIO 1.1 (0.9-1.6); ALBUMIN 3.6 g/dL (3.4-5.0); BILIRUBIN TOTAL 0.4 mg/dL (0.2-1.0); CALCIUM 9.2 mg/dL (8.5-10.1); CARBON DIOXIDE,CO2 26.8 mmol/L (21.0-32.0); CREATININE 1.1 mg/dL (0.6-1.0); EST CRCL DRUG DOSING (CG) 44.55 mL/min; POTASSIUM,K 4.3 mmol/L (3.5-5.1)
[2023-11-28] MEDS ORDERED: Iopamidol 755 Mg/ML 100 ML Bottle IVPUSH STA (14:17)
[2023-11-28 14:30] LABS: APPEARANCE,URINE CLEAR; BILIRUBIN,URINE NEGATIVE (NEGATIVE); GLUCOSE,URINE NEGATIVE (NEGATIVE); KETONES,URINE TRACE mg/dL (NEGATIVE); LEUKOCYTE ESTERASE,URINE NEGATIVE (NEGATIVE); NITRITE,URINE NEGATIVE (NEGATIVE); OCCULT BLOOD,URINE NEGATIVE (NEGATIVE); PH,URINE 5.5 (5.0-8.0); PROTEIN,URINE NEGATIVE (NEGATIVE); UROBILINOGEN,URINE 0.2 EU/dL (<2.0)
[2023-11-28 14:32] LABS: COLOR,URINE DARK YELLOW
== END 2023-11-28 15:03 | disposition home or self-care (01) ==
LOC: MW.ED 12:42
DX: R10.32 Left lower quadrant pain (principal); I10 Essential (primary) hypertension; Z90.710 Acquired absence of both cervix and uterus; Z79.899 Other long term (current) drug therapy; Z91.040 Latex allergy status; Z88.5 Allergy status to narcotic agent
CPT/HCPCS: 36415; 74177; 80053; 81003; 83690; 85025; 96361; 96374; 99284; J1885; J3490; J7030; Q9967

== ENCOUNTER 2023-12-03 11:42 | Emergency (ER) | payer MEDICARE, MEDICAID | END 2023-12-03 13:10 | disposition home or self-care (01) | LOC: MW.ED 11:42 | DX: M67.431 Ganglion, right wrist (principal); I10 Essential (primary) hypertension; Z88.5 Allergy status to narcotic agent; Z91.040 Latex allergy status; Z90.49 Acquired absence of other specified parts of digestive tract; Z79.899 Other long term (current) drug therapy | CPT/HCPCS: 73110-26-RT; 73110-RT; 99282; 99283 ==

== ENCOUNTER 2024-04-13 09:07 | Observation (INO) | payer MEDICAID, MEDICARE ==
[2024-04-13] MEDS: Sodium Chloride 0.9% 10 ML Syringe FLUSH PRN (09:41)
[2024-04-13] MEDS: Sodium Chloride 0.9% 2.5 ML Syringe FLUSH PRN (09:41)
[2024-04-13 09:48] LABS: BASOPHILS ABSOLUTE AUTO 0.05 K/uL (0.00-0.20); BASOPHILS PERCENT AUTO 1.2 % (0.0-1.0); EOSINOPHILS ABSOLUTE AUTO 0.19 K/uL (0.00-0.45); EOSINOPHILS PERCENT AUTO 4.4 % (0.0-6.0); HEMATOCRIT 41.1 % (37.0-47.0); HEMOGLOBIN 14.1 g/dL (12.0-16.0); IMMATURE GRAN ABSOLUTE AUTO 0.01 K/uL (0.00-0.05); IMMATURE GRAN PERCENT AUTO 0.2 % (0.0-0.4); LYMPHOCYTES ABSOLUTE AUTO 1.53 K/uL (1.00-4.80); LYMPHOCYTES PERCENT AUTO 35.7 % (24.0-44.0); MEAN CORPUSCULAR HEMOGLOBIN 32.5 pg (28.0-32.0); MEAN CORPUSCULAR HGB CONC 34.3 g/dL (32.0-36.0); MEAN CORPUSCULAR VOLUME 94.7 fL (83.0-99.0); MEAN PLATELET VOLUME 8.8 fL (9.4-12.3); MONOCYTES ABSOLUTE AUTO 0.45 K/uL (0.00-0.80); MONOCYTES PERCENT AUTO 10.5 % (0.0-8.0); NEUTROPHILS ABSOLUTE AUTO 2.05 K/uL (1.80-7.70); PLATELET COUNT,PLT 247 K/uL (150-400); RED BLOOD CELL COUNT 4.34 M/uL (4.10-5.30); WHITE BLOOD CELL COUNT,WBC 4.28 K/uL (3.9-11.3)
[2024-04-13 10:17] LABS: INR 0.98 (0.86-1.11)
[2024-04-13 10:33] LABS: A/G RATIO 1.1 (0.9-1.6); ALBUMIN 3.5 g/dL (3.4-5.0); BILIRUBIN TOTAL 0.4 mg/dL (0.2-1.0); CALCIUM 8.6 mg/dL (8.5-10.1); POTASSIUM,K 4.2 mmol/L (3.5-5.1); PROTEIN TOTAL,TP 6.7 g/dL (6.4-8.2)
[2024-04-13] MEDS: Iopamidol 755 MG/ML 500 ML Multipack Bottle IVPUSH STA (12:00)
[2024-04-13 17:25] LABS: HEMOGLOBIN A1C 5.5 %
[2024-04-13] MEDS: Clopidogrel 75 MG Tab PO SCH (19:44)
[2024-04-13] MEDS: LORazepam 0.5 MG Tab PO PRN (20:39)
[2024-04-14] MEDS ORDERED: Ondansetron 4 MG/2 ML SDV IVPUSH PRN (02:30)
[2024-04-14 06:57] LABS: BASOPHILS ABSOLUTE AUTO 0.04 K/uL (0.00-0.20); BASOPHILS PERCENT AUTO 0.8 % (0.0-1.0); EOSINOPHILS ABSOLUTE AUTO 0.21 K/uL (0.00-0.45); EOSINOPHILS PERCENT AUTO 4.4 % (0.0-6.0); HEMATOCRIT 39.6 % (37.0-47.0); HEMOGLOBIN 13.4 g/dL (12.0-16.0); IMMATURE GRAN ABSOLUTE AUTO 0.01 K/uL (0.00-0.05); IMMATURE GRAN PERCENT AUTO 0.2 % (0.0-0.4); LYMPHOCYTES PERCENT AUTO 33.2 % (24.0-44.0); MEAN CORPUSCULAR HEMOGLOBIN 31.9 pg (28.0-32.0); MEAN CORPUSCULAR HGB CONC 33.8 g/dL (32.0-36.0); MEAN CORPUSCULAR VOLUME 94.3 fL (83.0-99.0); MONOCYTES ABSOLUTE AUTO 0.59 K/uL (0.00-0.80); MONOCYTES PERCENT AUTO 12.2 % (0.0-8.0); NEUTROPHILS ABSOLUTE AUTO 2.37 K/uL (1.80-7.70); NEUTROPHILS PERCENT AUTO 49.2 % (41.0-71.0); PLATELET COUNT,PLT 233 K/uL (150-400); WHITE BLOOD CELL COUNT,WBC 4.82 K/uL (3.9-11.3)
[2024-04-14 07:16] LABS: CALCIUM 8.7 mg/dL (8.5-10.1); CARBON DIOXIDE,CO2 24.7 mmol/L (21.0-32.0); CREATININE 0.9 mg/dL (0.6-1.0); EST CRCL DRUG DOSING (CG) 54.45 mL/min; POTASSIUM,K 3.9 mmol/L (3.5-5.1)
[2024-04-14] MEDS: Aspirin 81 MG Tab.Chew PO SCH (09:52)
== END 2024-04-14 11:45 | disposition home or self-care (01) ==
LOC: MW.ED 09:07 → MW.MS 13:30
PROVIDERS: ADMIT Internal Medicine; ATTEND Internal Medicine
DX: G45.9 Transient cerebral ischemic attack, unspecified (principal); F41.9 Anxiety disorder, unspecified; I10 Essential (primary) hypertension; Z79.899 Other long term (current) drug therapy
CPT/HCPCS: 36415; 70450; 70496; 70498; 71045; 80048; 80053; 80061; 83036; 84484; 85025; 85610; 93005; 99285; A9270; J3490; Q9967; 93010; 99222; 99238; G0378

== ENCOUNTER 2025-08-18 09:00 | Emergency (ER) | payer MEDICARE, OTHER ==
[2025-08-18] MEDS ORDERED: Sodium Chloride 0.9% 10 ML Syringe FLUSH PRN (09:12)
[2025-08-18] MEDS ORDERED: Sodium Chloride 0.9% 2.5 ML Syringe FLUSH PRN (09:12)
[2025-08-18] MEDS: Alum Hydrox/Mag Hydrox/Simeth 15 ML, Metoclopramide 5 MG, Lidocaine 2% 5 ML PO ONE (09:53)
[2025-08-18 10:00] LABS: BASOPHILS ABSOLUTE AUTO 0.05 K/uL (0.00-0.20); BASOPHILS PERCENT AUTO 1.4 % (0.0-1.0); EOSINOPHILS ABSOLUTE AUTO 0.13 K/uL (0.00-0.45); EOSINOPHILS PERCENT AUTO 3.8 % (0.0-6.0); IMMATURE GRAN ABSOLUTE AUTO 0.02 K/uL (0.00-0.05); IMMATURE GRAN PERCENT AUTO 0.6 % (0.0-0.4); LYMPHOCYTES ABSOLUTE AUTO 1.28 K/uL (1.00-4.80); LYMPHOCYTES PERCENT AUTO 37.0 % (24.0-44.0); MEAN PLATELET VOLUME 9.0 fL (9.4-12.3); MONOCYTES ABSOLUTE AUTO 0.36 K/uL (0.00-0.80); MONOCYTES PERCENT AUTO 10.4 % (0.0-8.0); NEUTROPHILS ABSOLUTE AUTO 1.62 K/uL (1.80-7.70); NEUTROPHILS PERCENT AUTO 46.8 % (41.0-71.0); NRBC ABSOLUTE 0.00 K/uL (0.00-0.02); NRBC PERCENT 0.0 /100WBC (0.0-0.2); PLATELET COUNT,PLT 227 K/uL (150-400); RED BLOOD CELL COUNT 4.18 M/uL (4.10-5.30); WHITE BLOOD CELL COUNT,WBC 3.46 K/uL (3.9-11.3)
[2025-08-18 10:25] LABS: A/G RATIO 1.2 (0.9-1.6); ALANINE AMINOTRANSFERASE,ALT 45.0 IU/L (14-63); ASPARTATE AMNIOTRANSFERASE,AST 29.0 IU/L (15-37); BILIRUBIN TOTAL 0.4 mg/dL (0.2-1.0); BLOOD UREA NITROGEN,BUN 13.0 mg/dL (7.0-18.0); CARBON DIOXIDE,CO2 26.5 mmol/L (21.0-32.0); CHLORIDE,CL 108.0 mmol/L (98-107); CREATININE 0.7 mg/dL (0.6-1.0); EST CRCL DRUG DOSING (CG) 69.01 mL/min; GLUCOSE RANDOM 91.0 mg/dL (74-106); POTASSIUM,K 4.3 mmol/L (3.5-5.1); PROTEIN TOTAL,TP 6.5 g/dL (6.4-8.2); SODIUM,NA 144.0 mmol/L (136-145)
[2025-08-18 10:30] LABS: ESTIMATED GFR 92.0 mL/min (>60)
[2025-08-18] MEDS: Sucralfate Suspension 1 GM/10 ML Cup PO ONE (12:22)
== END 2025-08-18 12:28 | disposition home or self-care (01) ==
LOC: MW.ED 09:00
DX: R07.89 Other chest pain (principal); I10 Essential (primary) hypertension; Z91.040 Latex allergy status; Z88.5 Allergy status to narcotic agent; Z79.899 Other long term (current) drug therapy; Z79.82 Long term (current) use of aspirin
CPT/HCPCS: 36415; 71045; 80053; 83735; 84484; 85025; 85379; 93005; 99285; A9270; 93010; 99284